=== PATIENT | female | born 1940 | race Caucasian/White ===

== ENCOUNTER → 2016-10-07 12:43 | Outpatient (CLI) | payer MEDICARE, OTHER ==
[2015-02-22 11:50] VITALS: BMI 31.6
[~2016-10-07 12:43] MED LIST: BABY ASPIRIN81 MG PO; BENICAR HCT 40-1 TAB PO; BENICAR40 MG PO; BIOTIN5 MG PO; CALCIUM 600 +1 EAC3 PO; CARAFATE1 G/10 ML PO; CRESTOR20 MG PO; CRESTOR40 MG PO; IMODIUM2 MG PO; KLONOPIN1 MG PO; LOMOTIL TABLET1 TAB PO; PEPCID20 MG PO; PLAVIX75 MG PO; PROBIOTIC1 EAC1 PO; PROTONIX40 MG PO; TYLENOL 325 MG325 MG PO; ULTRAM50 MG PO; VITAMIN B-1000 MCG/M IM; VITAMIN B-1000 MCG/M SQ; XANAX0.25 MG PO; ZYLOPRIM100 MG PO
== END | disposition home or self-care (01) ==
LOC: D.US 12:43
DX: I65.23 Occlusion and stenosis of bilateral carotid arteries (principal)

== ENCOUNTER → 2017-01-31 07:53 | Outpatient (CLI) | payer MEDICARE, OTHER ==
--- NOTE | ~2017-01-31 | HEMODYNAMI ---
PATIENT:MELISSA CARROLL MEDICAL RECORD: [id number] : 40 LOCATION:[facility] ADMISSION DATE: 01/31/17 Generatedon:01/31/201711:45 Patient name: MELISSA CARROLL Patient #: [id number] SSN: DO B: 1940 Date of study: 01/31/2017 Page: Of Hemodynamic Procedure Report Patient Data Patient Demographics Procedure consent was obtained First Name: MELISSA Gender: Female Last Name: GLEN : 1940 Patient #: [id number] Age: 76 year(s) Race: Unknown Additional ID: [id number] Contact details [address]: [address] [place] [address] State: [place] City: [place] Zip code: [address] Past Medical History Allergies Allergen Reaction Date Comments Reported Other allergy 01/31/2017 Allopurinol, Fluarix Admission Admission Data Admission Date: 01/31/2017 Admission Time: 7:53 Admit Source: Other Height (in.): 67 BSA: 1.89 (m2) Height (cm.): 170.18 BMI: 26.78 (kg/m2) Weight (lbs.): 171 Weight (kg.): 77.56 Procedure Procedure Types Cath Procedure Diagnostic Procedure [facility] LH w/Coronaries PCI Procedure Coronary Stent Initial Miscellaneous Procedures Moderate Sedation up to 15 minutes Moderate Sedation up to 30 minutes Peripheral Cath Diagnostic Procedure Cath Peripheral Vmkil-Weumslh-Xpk-Off Peripheral vascular Intervention Stent Stent Iliac w/plasty Initial Procedure Description Procedure Date Procedure Date: 01/31/2017 Procedure Start Time: 11:10 Procedure End Time: 11:40 Procedure Staff Name Function Raymond Dior MD Performing Physician Selene Cifuentes RT Scrub Maldonado Del Valle RN Nurse Teri Reyes RN Nurse Giuliana Gibbs RT Monitor Procedure Data Cath Procedure Fluoroscopy Diagnostic fluoroscopy Total fluoroscopy Time: 8.5 time: 8.5 min min Diagnostic fluoroscopy Total fluoroscopy dose: dose: 1042 mGy 1042 mGy Contrast Material Contrast Material Type Amount (ml) Isovue 300 252 Entry Location Entry Primary Successful Side Size (Fr) Upsize 1 Upsize Entry Closu re Successful Closure Location (Fr) 2 (Fr) Remarks Feng e Remarks Femoral Right 5 Fr 6 Fr 6 Fr Exose al artery Mid-Length Short Femoral Left 6 Fr 6 Fr Short Exose al artery Mid-Length Estimated blood loss: 10 ml Diagnostic catheters Device Type Used For End Catheter Placement Cordis 5Fr Pigtail Procedure Catheter (MP) Cordis 5Fr 3DRC Catheter Abdominal (MP) aortogram Cordis 5Fr Pigtail Procedure Catheter (MP) Cordis 5Fr JL 4.0 Procedure Catheter (MP) Cordis 5Fr 3DRC Catheter Procedure (MP) Procedure Complications No complications Procedure Medications Medication Administration Route Dosage 0.9% NaCl I.V. 100 ml/hr Lidocaine 2% added to field 20 Oxygen NC 2 l/min Heparin Flush Bag added to field 2 bags (1000units/500ml NS) Radial Cocktail added to field 1 syringe (Verapomil 2mg/Nitro 400mcg/Heparin 1500units) Fentanyl I.V. 50 mcg Versed I.V. 1 mg Versed I.V. 1 mg Fentanyl I.V. 50 mcg Versed I.V. 1 mg Fentanyl I.V. 50 mcg Versed I.V. 1 mg Fentanyl I.V. 50 mcg Heparin Bolus I.V. 5000 units Versed I.V. 1 mg Versed I.V. 1 mg Fentanyl I.V. 50 mcg Heparin Bolus I.V. 3000 units Fentanyl I.V. 50 mcg Hemodynamics Rest BSA: 1.89 (m2) O2 Consumption: Estimated: 173.18 (ml/min) O2 Consumption indexed : Estimated:91.63 (ml/min/m) Heart Rate: 72 (bpm) Pressure Samples Time Site Value (mmHg) Purpose Heart Use Rate(bpm) 11:03 AO 204/39(92) Snapshot 72 11:03 LV 208/19,26 Snapshot 76 Snapshots Pre Cath Intra NCS Post Cath Vital Signs Time Heart Resp SPO2 etCO2 NIBP (mmHg) Rhythm Pain Sedation Rate (ipm) (%) (mmHg) Status Level (bpm) 10:35:48 76 15 99 36.3 Measuring NSR 0 (11) 10(A) , No pain 10:37:10 75 19 99 37.1 Time NSR 0 (11) 10(A) Exceeded , No pain 10:42:11 65 16 94 0 180/73(131) NSR 0 (11) 10(A) , No pain 10:46:41 67 19 97 22 171/74(131) NSR 0 (11) 10(A) , No pain 10:51:14 70 19 98 0 176/68(118) NSR 0 (11) 10(A) , No pain 10:55:44 69 17 97 22.7 167/65(117) NSR 0 (11) 10(A) , No pain 11:00:19 70 19 98 0 172/63(122) NSR 0 (11) 9(A) , No pain 11:04:53 80 18 98 18.1 178/70(118) NSR 0 (11) 9(A) , No pain 11:09:28 80 17 99 3 183/76(131) NSR 0 (11) 9(A) , No pain 11:14:00 83 15 99 10.6 181/74(121) NSR 0 (11) 10(A) , No pain 11:18:35 79 13 99 13.6 169/65(104) NSR 0 (11) 10(A) , No pain 11:23:07 77 16 97 0 163/65(114) NSR 0 (11) 10(A) , No pain 11:28:55 81 16 99 0 171/68(124) NSR 0 (11) 10(A) , No pain 11:33:30 77 17 98 0 184/74(130) NSR 0 (11) 10(A) , No pain 11:37:54 82 16 98 28 161/75(116) NSR 0 (11) 10(A) , No pain Medications Time Medication Route Dose Verified Delivered Reason No cayden Effectiveness by by 10:44:47 0.9% NaCl I.V. 100 ml/hr Raymond Williamson used for Barby Reyes spray booth operator 10:45:16 Lidocaine 2% added 20ml vial Raymond Andrade for local to Barby Dior MD anesthetic field 10:45:41 Oxygen NC 2 l/min Raymond Williamson used for Barby Reyes spray booth operator 10:46:15 Heparin Flush added 2 bags Raymond Andrade used for Bag to Barby Dior MD procedure (1000units/500ml field NS) 10:46:48 Radial Cocktail added 1 syringe Raymond Andrade for (Verapomil to Barby Dior MD anticoagulation 2mg/Nitro field 400mcg/Heparin 1500units) 10:49:56 Fentanyl I.V. 50 mcg Raymond Williamson for sedation Barby Reyes RN 10:50:09 Versed I.V. 1 mg Raymond Williamson for sedation Barby Reyes RN 10:53:23 Versed I.V. 1 mg Raymond Okeefe for sedation Barby Del Valle RN 10:53:31 Fentanyl I.V. 50 mcg Raymond Okeefe for sedation Barby Del Valle RN 10:58:32 Versed I.V. 1 mg Raymond Williamson for sedation Barby Reyes RN 10:58:39 Fentanyl I.V. 50 mcg Raymond Williamson for sedation Barby Reyes RN 11:02:23 Versed I.V. 1 mg Raymond Okeefe for sedation Barby Del Valle RN 11:02:48 Fentanyl I.V. 50 mcg Raymond Okeefe for sedation Barby Del Valle RN 11:04:17 Heparin Bolus I.V. 5000 Raymond Ordazfany for ve rified units Barby Reyes RN anticoagulation with dr dior 11:14:02 Versed I.V. 1 mg Raymond Williamson for sedation Barby Reyes RN 11:15:48 Versed I.V. 1 mg Raymond Williamson for sedation Barby Reyes RN 11:15:56 Fentanyl I.V. 50 mcg Raymond Okeefe for sedation Barby Del Valle RN 11:24:43 Heparin Bolus I.V. 3000units Raymond Okeefe for ve karelied Barby Del Valle RN anticoagulation with dr dior 11:29:17 Fentanyl I.V. 50 mcg Raymond Williamson for sedation Barby Reyes RN Procedure Log Time Note 10:17:15 Patient Height : 67 inches 10:17:21 Patient Weight : 171 lbs 10:17:21 Admit Source: Other 10:19:24 Diagnostic Cath status Elective 10:19:26 Maldonado Del Valle RN sent for patient. Start room use. 10:19:27 Time tracking: Regular hours 10:19:31 Plan of Care:Hemodynamics will remain stable., Cardiac rhythm will remain stable., Comfort level will be maintained., Respiratory function will remain adequate., Patient/ family verbilizes understanding of procedure., Procedure tolerated without complication., Recovers from procedure without complications.. 10:19:55 Patient received from Pre/Post Procedure Room to CCL 2 Alert and oriented. Tansferred to table in Supine position. 10:20:37 Warm blankets applied, and maurizio hugger turned on for patient comfort. 10:20:38 Correct patient and procedure confirmed by team. 10:20:39 Signed procedure consent form obtained from patient. 10:20:40 ECG and BP/O2 sat monitors applied to patient. 10:20:51 H&P Date Dictated: 01/22/2017 Within 30 days and on chart., H&P Addendum completed by physician on day of procedure. (MUST COMPLETE FOR ALL OUTPATIENTS). 10:20:53 Pre-procedure instructions explained to patient. 10:20:54 Family in waiting room. 10:20:56 Patient NPO since Midnight. 10:21:35 Patient allergic to Other allergyAllopurinol, Fluarix 10:31:10 Is patient on blood thinner?Yes 10:31:13 ACC The patient was administered the following blood thiners within the last 24 hours: ACCPlavix 10:31:17 Patient diabetic? No. 10:31:26 Snore? No 10:31:28 Sleep apnea? No 10:31:36 Dentures? Yes in tight 10:31:39 Patient pain scale 0/10 ?. 10:31:45 IV patent on arrival in left hand with 0.9% NaCl at KVO. 10:31:50 Lab results completed and on chart. 10:31:54 Right Radial & Right Groin area was prepped with chlora-prep and draped in sterile fashion 10:31:56 Alarms reviewed by R. N. 10:31:56 Sharps counted by scrub and verified by R.N. 10:31:59 Physician paged 10:33:59 Vital chart was started 10:44:47 0.9% NaCl 100 ml/hr I.V. was administered by Teri Reyes RN; used for procedure; 10:45:16 Lidocaine 2% 20ml vial added to field was administered by Raymond Dior MD; for local anesthetic; 10:45:41 Oxygen 2 l/min NC was administered by Teri Reyes RN; used for procedure; 10:46:15 Heparin Flush Bag (1000units/500ml NS) 2 bags added to field was administered by Raymond Dior MD; used for procedure; 10:46:48 Radial Cocktail (Verapomil 2mg/Nitro 400mcg/Heparin 1500units) 1 syringe added to field was administered by Raymond Dior MD; for anticoagulation; 10:47:45 Zero performed for pressure channel P1 10:49:02 Physician arrived 10:49:03 --------ALL STOP TIME OUT------ 10:49:04 Final Timeout: patient, procedure, and site verified with staff and physician. All members of the team are in agreement. 10:49:06 Right Radial & Right Groin site verified by team. 10:49:11 Sedation plan: IV Moderate Sedation Versed, Fentanyl 10:49:56 Fentanyl 50 mcg I.V. was administered by Teri Reyes RN; for sedation; 10:49:56 Use device set Radial Dx 10:49:57 Acist Syringe opened to sterile field. 10:49:57 Medline Cath Pack opened to sterile field. 10:49:58 Bag Decanter opened to sterile field. 10:49:58 Terumo 6Fr Slender Glidesheath opened to sterile field. 10:49:59 St Axel 260cm J .035 wire opened to sterile field. 10:49:59 Acist Hand Control opened to sterile field. 10:49:59 Acist Manifold opened to sterile field. 10:50:00 Tegaderm 4 x 4 opened to sterile field. 10:50:00 MBrace Wrist Support opened to sterile field. 10:50:09 Versed 1 mg I.V. was administered by Teri Reyes RN; for sedation; 10:53:12 Procedure started. 10:53:13 Full Disclosure recording started 10:53:23 Versed 1 mg I.V. was administered by Maldonado Del Valle RN; for sedation; 10:53:31 Fentanyl 50 mcg I.V. was administered by Maldonado Del Valle RN; for sedation; 10:53:42 Local anesthetic to right radial artery with Lidocaine 2% by Raymond Dior MD.INITIAL ACCESS ONLY 10:55:41 Use device set Multipack Set 10:55:43 Diagnostic Infinity 5Fr Multipack catheter opened to sterile field. 10:55:51 Terumo 5Fr [place] Sheath opened to sterile field. 10:55:56 Local anesthetic to right femoral artery with Lidocaine 2% by Raymond Dior MD.ADDITIONAL ACCESS 10:56:24 A 5 Fr sheath was inserted into the Right Femoral artery 10:58:32 Versed 1 mg I.V. was administered by Teri Reyes RN; for sedation; 10:58:39 Fentanyl 50 mcg I.V. was administered by Teri Reyes RN; for sedation; 10:58:59 A Cordis 5Fr Pigtail Catheter (MP) was advanced over the wire and used for Procedure. 10:59:47 Catheter removed. 11:00:07 unable to cross abdominal aorta. 11:00:50 A Cordis 5Fr 3DRC Catheter (MP) was advanced over the wire and used for Abdominal aortogram. 11:01:20 Terumo Super Stiff Angled 260cm glide wire opened to sterile field. 11:02:23 Versed 1 mg I.V. was administered by Maldonado Del Valle RN; for sedation; 11:02:23 Catheter removed. 11:02:39 A Cordis 5Fr Pigtail Catheter (MP) was advanced over the wire and used for Procedure. 11:02:48 Fentanyl 50 mcg I.V. was administered by Maldonado Del Valle RN; for sedation; 11:02:49 LV gram done using BRITO 11:03:29 EF : 50 % 11:04:09 Abdominal angiogram w/ runoff was performed. 11:04:17 Heparin Bolus 5000 units I.V. was administered by Teri Reyes RN; for anticoagulation; verified with dr dior 11:07:32 Prepped left groin for intervenion 11:07:37 Cordis 6Fr Brite Tip 35cm Sheath opened to sterile field. 11:07:38 Cordis 6Fr Brite Tip 35cm Sheath opened to sterile field. 11:08:21 Sheath upsized to a 6 Fr Mid-Length. 11:10:06 St Axel 260cm J .035 wire opened to sterile field. 11:10:43 Local anesthetic to left femerol artery with Lidocaine 2% by Raymond Dior MD.INITIAL ACCESS ONLY 11:11:10 A 6 Fr Mid-Length sheath was inserted into the Left Femoral artery 11:11:50 J wire inserted. 11:12:17 Jwires inserted bilaterally wire advanced. 11:14:02 Versed 1 mg I.V. was administered by Teri Reyes RN; for sedation; 11:15:10 Procedure type changed to Cath procedure, Diagnostic procedure, LHC, LHC w/Coronaries, PCI procedure, Coronary Stent Initial, Miscellaneous Procedures, Moderate Sedation up to 15 minutes, Moderate Sedation up to 30 minutes, Peripheral Cath Diagnostic Procedure, Cath Peripheral, Tvsxi-Dpvagxc-Ceo-Off, Peripheral vascular Intervention, Stent, Stent Iliac w/plasty Initial 11:15:48 Versed 1 mg I.V. was administered by Teri Reyes RN; for sedation; 11:15:56 Fentanyl 50 mcg I.V. was administered by Maldonado Del Valle RN; for sedation; 11:17:06 Inflation Number: 1 A Cordis Terrie 7 x 29 x 135 stent was prepped and advanced across the Ostial Common Iliac, Left. The stent was deployed at 9 ANNAMARIA for 0:10 (min:sec). 11:17:48 Inflation Number: 1 A Cordis Terrie 7 x 29 x 135 stent was prepped and advanced across the Ostial Common Iliac, Right. The stent was deployed at 10 ANNAMARIA for 0:00 (min:sec). 11:18:27 Merit BasixCompak Inflation Kit opened to sterile field. 11:18:28 [place] Takes Choice PT Extra Support J 300cm .014 gu opened to sterile field. 11:18:40 Stent removed. 11:19:12 Medtronic Launcher 6Fr HS I SH guide catheter opened to sterile field. 11:19:25 A Cordis 5Fr JL 4.0 Catheter (MP) was advanced over the wire and used for Procedure. 11:19:41 Catheter removed. 11:19:52 A Cordis 5Fr 3DRC Catheter (MP) was advanced over the wire and used for Procedure. 11:19:56 Catheter removed. 11:20:02 Proceeding to intervention. 11:20:29 6 Fr HS1 SH guide catheter was inserted over the wire 11:20:38 pt extra support wire advanced. 11:20:40 Wire advanced across lesion. 11:20:55 The Euphora 2.5 x 20 Balloon was advanced and then removed because of failure to cross lesion 11:21:55 The Euphora 1.5 x 20 Balloon was advanced and then removed because of failure to cross lesion 11::55 Balloon removed over the wire. 11::39 unable to cross RCA with a 1.5 balloon olga back at later date. 11::43 Heparin Bolus 3000units I.V. was administered by Maldonado Del Valle RN; for anticoagulation; verified with dr dior 11::57 Wire removed. 11::57 Guide catheter removed. 11:25:04 Cordis 6FR XBLAD 3.5 guide catheter opened to sterile field. 11:27:22 6 Fr XBLAD3.5 guide catheter was inserted over the wire 11::33 choice pt ex support wire advanced. 11::55 [place] Takes Choice PT Extra Support J 300cm .014 gu opened to sterile field. 11::56 Terumo 6Fr [place] Sheath opened to sterile field. 11::57 Terumo 6Fr [place] Sheath opened to sterile field. 11:28:23 The [place] OTW 3.0 x 22 stent was advanced then removed because of failure to cross lesion 11::58 Inflation number: 1 A Euphora 2.5 x 20 Balloon was prepped and advanced across the Mid LAD, then inflated to 19 ANNAMARIA for 0:10 (min:sec). 11:29:06 Balloon removed over the wire. 11:29:17 Fentanyl 50 mcg I.V. was administered by Teri Reyes RN; for sedation; :39 Inflation Number: 2 A [place] OTW 3.0 x 22 stent was prepped and advanced across the Mid LAD. The stent was deployed at 17 ANNAMARIA for 0:10 (min:sec). 11::42 Wire removed. ::43 Guide catheter removed. 11:31:05 St Axel Femstop Arch Gold opened to sterile field. 11:32:38 Sheath upsized to a 6 Fr Short. 11:32:38 Sheath removed intact; hemostasis achieved with Exoseal to the Left Femoral artery. 11:32:55 Sheath upsized to a 6 Fr Short. 11:32:55 Sheath removed intact; hemostasis achieved with Exoseal to the Right Femoral artery. 11:33:45 Procedure ended.(Physican Out) 11:33:57 Fluoroscopy time 08.50 minutes. 11:34:02 Flurop Dose total: 1042 11:34:02 Fluoroscopy dose: 1042 mGy 11:34:06 Contrast amount:Isovue 300 252ml. 11:34:08 Sharps counted by scrub and verified by R.N. 11:34:32 Post-op/insertion site Right Femoral artery dressed using a 4 x 4 and Tegaderm. 11:34:40 Post-op/insertion site Left Femoral artery dressed using a 4 x 4 and Tegaderm. 11:34:48 Post left femerol artery:hematoma 11:34:57 Femstop placed over the left femerol artery at 190 mmHg. Hemostasis achieved. 11:35:01 Post Procedure Pulses reassessed and unchanged 11:35:06 Post-procedure physical assessment completed. ASA score P 2 - A patient with mild systemic disease as per Raymond Dior MD. 11:35:10 Post procedure rhythm: unchanged. 11:35:12 Estimated blood loss: 10 ml 11:35:14 Post procedure instruction explained to patient.Patient verbalizes understanding. 11:39:08 Procedure and supply charges have been captured, reviewed, submitted and are correct. 11:40:26 Procedure Complication : No complications 11:40:29 Vital chart was stopped 11:40:31 See physician's report for complete and final results. 11:40:35 Report given to Pre/Post Procedure Room. 11:40:38 Patient transfered to Pre/Post Procedure Room with Stretcher. 11:40:40 Procedure ended. 11:40:40 Full Disclosure recording stopped 11:40:46 End room use (Document Last) 11:40:58 ACC-PCI Only Patient was given prescriptions, or instructed by Raymond Dior MD to start/continue the following medications upon discharge: Plavix Intervention Summary Intervention Notes Time ActionType Lesion and Equipment Action# Pressure Duration Attributes Used 11:17:06 Place stent Ostial Cordis 1 9 00:10 Common Terrie 7 Iliac, Left x 29 x 135 stent 11:17:48 Place stent Ostial Cordis 1 10 00:00 Common Terrie 7 Iliac, x 29 x Right 135 stent 11:20:55 Discard Euphora Balloon 2.5 x 20 Balloon 11:21:55 Discard Euphora Balloon 1.5 x 20 Balloon 11:28:23 Discard [place] OTW Stent 3.0 x 22 stent 11:28:58 Inflate Mid LAD Euphora 1 19 00:10 balloon 2.5 x 20 Balloon 11:30:39 Place stent Mid LAD [place] OTW 2 17 00:10 3.0 x 22 stent Device Usage Item Name Manufacture Quantity Catalog Number Hospital Part Current Mini mal Lot# / Charge Number Stock Stock Serial# Code Acist Acist 1 09808 148024 197679 062385 20 Syringe Medical Systems Inc Medline Cardinal 1 [id number] 606682 59194 281982 5 Cath Pack Health Bag Microtek 1 2002S 199420 42610 383155 5 DecFrank & Oak Medical Inc. Terumo 6Fr Terumo 1 [id number] 879265 078159 459903 [address] Ax[address] St Axel 2 222602 405127 592065 736113 30 260cm J .035 wire Acist Hand Acist 1 05009 932229 297071 030200 5 Control Medical Systems Inc Acist Acist 1 22672 247165 209088 598219 5 Chat Sports Medical Systems Inc Tegaderm 4 3M 1 1626W 542035 409861 457403 5 x 4 MBrace Advanced 1 140-0250-00 700729 55911 555117 5 Wrist Vascular Support Dynamics Diagnostic Cardinal 1 [id number] 332799 67026 650629 30 Infinity Health 5Fr Multipack catheter Terumo 5Fr Terumo 1 [id number] 079440 036513 393080 40 [place] Sheath Cordis 5Fr Cardinal 1 498078 5 Pigtail Health Catheter (MP) Cordis 5Fr Cardinal 1 441499 5 3DRC Health Catheter (MP) Terumo Terumo 1 [id number] 469043 805080 067859 5 Super Stiff Angled 260cm glide wire Cordis 6Fr Cardinal 2 [id number] 442332 382873 392149 1 Brite Tip Health 35cm Sheath Cordis Cardinal 2 [id number] 178673 407234 5 [id number] Terrie 7 x Health 29 x 135 stent Merit Merit 1 [id number] 346637 691255 202437 15 GoComm Medical Inflation Kit [place] Sci [place] 2 [id number] 795569 059009 295271 5 Choice PT Scientific Extra Support J 300cm .014 gu Medtronic Medtronic 1 [id number] 338649 39705 896198 1 Launcher 6Fr HS I SH guide catheter Cordis 5Fr Cardinal 1 292668 5 JL 4.0 Health Catheter (MP) Cordis 6FR Cardinal 1 [id number] 994018 581306 720035 10 XBLAD 3.5 Health guide catheter Euphora 2.5 Medtronic 1 [id number] 628292 970205 061241 5 [id number] x 20 Balloon Euphora 1.5 Medtronic 1 [id number] 247594 773532 058473 5 [id number] x 20 Balloon Terumo 6Fr Terumo 2 [id number] 097080 745786 147278 40 [place] Sheath [place] OTW Medtronic 1 [id number] 259563 0491843 785260 5 [id number] 3.[address] Axel 1 [id number] 724742 813033 120957 5 Femstop Arch Gold Signature Audit Starr Stage Time Signature Unsigned Intra-Procedure 01/31/2017 Giuliana Gibbs 11:45:23 AM RT(R) Signatures Monitor : Giuliana Gibbs Signature : RT Date : Time : [id number] [place] [address]
[~2017-01-31 07:53] MED LIST changes: +CYCLOBENZAPRINE10 MG PO; +LAMISIL250 MG PO; +RESTASIS EYE DR30 EA EACH EYE
[2017-01-31 08:18] VITALS: BP 199/69; BMI 28.8
[2017-01-31 08:37] LABS: BASOPHILS 0.3 % (0-2); EOSINOPHILS 1.3 % (0-7); HEMATOCRIT 34.7 % (36.0-48.0); HEMOGLOBIN 11.1 g/dL (12-16); IMMATURE GRANULOCYTES 0.7 % (0-5); LYMPHOCYTES 32.5 % (15-50); MCH 29.2 pg (26.0-34.0); MCV 91.3 fL (80.0-100.0); MONOCYTES 7.2 % (2-11); PLATELET COUNT 232 10x3/uL (130-400); RDW 13.8 % (11.5-14.5); WBC 7.5 10x3/uL (4.8-10.8)
[2017-01-31 08:40] LABS: ANION GAP 15.5 mmol/L (8-16); CALCIUM 9.1 mg/dL (8.5-10.1); CARBON DIOXIDE 26.7 mmol/L (21.0-32.0); CREATININE - SERUM 1.4 mg/dL (0.6-1.3); POTASSIUM - SERUM 4.2 mmol/L (3.5-5.1)
--- NOTE | 2017-01-31 11:45 | NUR ---
1145 RECIEVED TO ROOM VIA STRETCHER FROM SAILBOAT CAPTAIN WITH BANDAID TO R/WRIST CDI NO BLEEDING NOTED. 6 FR EXOSEAL R/GROIN CDI NO BLEEDING NO HEMATOMA NOTED. FEMSTOP TO L/GROIN CDI NO BLEEDING NOTED. REPORTS OF ONE STENT TO THE L/ILIAC,ONE STENT TO THE R/ILIAC,AND ONE STENT TO THE LAD. VSS WITH CHEST PAIN DENIED
--- NOTE | 2017-01-31 12:13 | NUR ---
PATIENT COMPLAINS OF NAUSEA WITH ZOFRAN GIVEN IV. VSS DR MUNOZ AT BEDSIDE
--- NOTE | 2017-01-31 12:50 | NUR ---
RESTING QUIETLY WITH NO COMPLAINTS. FAMILY AT BEDSIDE VSS
--- NOTE | 2017-01-31 13:47 | NUR ---
FEMSTOP REMOVED WITH DRESSING APPLIED NO BLEEDING NO HEMATOMA NOTED. VSS
--- NOTE | 2017-01-31 14:38 | NUR ---
6 FR EXOSEAL R/GROIN CDI NO BLEEDING NO HEMATOMA NOTED. DRESSING TO L/GROIN CDI WITH FEMSTOP REMOVED NO BLEEDING NO HEMATOMA NOTED. PULSES PRESENT AND PALPABLE. PATIENT DENIED CHEST PAIN WITH VSS
--- NOTE | 2017-01-31 15:25 | NUR ---
6 FR EXOSEAL R/GROIN CDI NO BLEEDING NO HEMATOMA NOTED. DRESSING L/GROIN CDI NO BLEEDING NO HEMATOMA NOTED. PATIENT DENIED PAIN OR NEEDS AT THIS TIME VSS
--- NOTE | 2017-01-31 16:14 | NUR ---
REPOSITIONED TO SITTING WITH HOB UP 30 DEGREES. BILATERAL GROIN DRESSINGS CDI NO BLEEDING NO HEMATOMA NOTED. VSS WITH CHEST PAIN DENIED
--- NOTE | 2017-01-31 16:23 | NUR ---
PIV REMOVED WITH DRESSING APPLIED. BILATERAL GROIN DRESSING REMAINS CDI NO BLEEDING NO HEMATOMA NOTED. PATIENT UP TO GET DRESSED FOR DISCHARGE HOME
--- NOTE | 2017-01-31 16:31 | NUR ---
VERBAL AND WRITTEN DISCHARGE GONE OVER WITH PATIENT AND . CHEST PAIN IS DENIED NO DISTRESS NOTED. BILATERAL GROIN CDI LEFT VIA WC TO PARKING FOR TRANSPORT HOME
--- NOTE | 2017-02-07 14:14 | OP ---
PATIENT NAME: MELISSA CARROLL MEDICAL RECORD: [id number] :40 LOCATION:D.CAT ADMISSION DATE: SURGEON: ADRIANA MUNOZ MD DATE OF OPERATION: 01/31/2017 PROCEDURE: 1. PTCA stent to LAD. 2. Left heart catheterization. 3. Selective coronary angiography. 4. Left ventriculogram. INDICATION: Angina and coronary artery disease. PROCEDURE IN DETAIL: After informed consent was obtained and after detailed explanation of risks, benefits as well as alternative therapies, the patient elected to proceed with angiogram and angioplasty. The right femoral area had a preexisting sheath from peripheral intervention. All catheters exchanged through this sheath. FINDINGS: Left ventriculogram was performed in the standard 30-degree BRITO view reveals preserved cardiac wall motion, ejection fraction 55%. SELECTIVE CORONARY ANGIOGRAPHY: 1. Left main showed no significant angiographic disease. 2. Left anterior descending had 80% to 90% stenosis in the mid vessel. 3. Left circumflex shows moderate irregularities, but no discrete flow-limiting stenosis. 4. Right coronary has a 90% followed by a 99% stenosis. SANITATION TRUCK DRIVER STENT OF THE RIGHT CORONARY ARTERY: We cannot traverse any balloon through the 99% stenosis. We turned our attention to the LAD and plan for a Diamondback atherectomy of the RCA in the near future. The LAD was addressed with a 3.0 x 22 mm [place] stent. Result was 0% residual stenosis. OVERALL IMPRESSION: Successful percutaneous transluminal coronary angioplasty stent of the left anterior descending going from 80% to 90% initial stenosis to 0% residual. PLAN: PTCA stent with Diamondback atherectomy of the RCA in the near future. TRANSINT:[id number] Voice Confirmation ID: [id number] DOCUMENT ID: [id number] ADRIANA MUNOZ MD at 1414 CC: [id number] DICTATION DATE: 01/31/17 1207 AUTO REPAIR TECHNICIAN: 01/31/17 1224 DEP CLI 01/31/[address] [id number]
--- NOTE | 2017-02-07 14:14 | OP ---
PATIENT NAME: MELISSA CARROLL MEDICAL RECORD: [id number] :40 LOCATION:D.CAT ADMISSION DATE: SURGEON: ADRIANA MUNOZ MD DATE OF OPERATION: 01/31/2017 PROCEDURES: 1. FOAM DISPENSER stent to right iliac. 2. FOAM DISPENSER stent to left iliac. 3. Aortofemoral runoff. 4. Abdominal aortography. INDICATION: Peripheral vascular disease, claudication, and inability to gain access for coronary angiography. DESCRIPTION OF PROCEDURE: After informed consent was obtained and after a detailed explanation of the risks, benefits as well as alternative therapies, the patient elected to proceed with angiogram and angioplasty. Both femoral areas were prepped and draped in normal sterile fashion. Both femoral artery was cannulated via modified Seldinger technique with placement of 6-Slovenian sheath. All catheters exchanged through this sheath. FINDINGS: Abdominal aortography was performed. The catheter was pulled down for aortofemoral runoff. Abdominal aortography reveals no significant abdominal aortic disease. No dissection. No renal artery stenosis. RIGHT LEG: A. Iliac: The common iliac has an 80% to 90% stenosis, otherwise only moderate irregularities. B. Femoral system: The common, superficial, and deep femoral have moderate irregularities, but no flow-limiting stenosis. C. Popliteal and infrapopliteal vessels are patent with preserved 3-vessel runoff to the foot. LEFT LEG: A. Iliac: The common iliac has an 80% to 90% stenosis, otherwise only moderate irregularities. B. Femoral system: The common, superficial, and deep femoral have moderate irregularities, but no flow-limiting stenosis. C. Popliteal and infrapopliteal vessels are patent with preserved 3-vessel runoff to the foot. FOAM DISPENSER STENT OF BOTH ILIACS: The balloon and stent used on both iliacs was 7 x 29 Cordis Terrie stents taken to 9 atmospheres. Result was 0% residual stenosis. OVERALL IMPRESSION: Successful percutaneous transluminal angioplasty stent of both iliacs going from 80% to 90% initial stenosis to 0% residual stenosis with brisk distal flow. TRANSINT:[id number] Voice Confirmation ID: [id number] DOCUMENT ID: [id number] OPERATIVE REPORT [id number] MELISSA CARROLL JEFFREY MD at 0492 CC: [id number] DICTATION DATE: 01/31/17 1204 CURRICULUM DIRECTOR: 01/31/17 1224 DEP CLI 01/31/17 [facility] [address] [id number]
== END | disposition home or self-care (01) ==
LOC: D.CATH 07:53
PROVIDERS: Internal Medicine Interventional Cardiology
DX: I25.119 Atherosclerotic heart disease of native coronary artery with unspecified angina pectoris (principal); I70.213 Atherosclerosis of native arteries of extremities with intermittent claudication, bilateral legs; Z01.812 Encounter for preprocedural laboratory examination
CPT/HCPCS: 93458; 37221; C9600

== ENCOUNTER 2017-02-05 07:50 | Outpatient (CLI) | payer MEDICARE, OTHER ==
[~2017-02-05] VITALS: Ht 165.1 cm; Wt 78.6 kg
--- NOTE | ~2017-02-05 | HEMODYNAMI ---
PATIENT:MELISSA CARROLL MEDICAL RECORD: [id number] : 40 LOCATION:DIDA ADMISSION DATE: 02/05/17 Generatedon:02/05/201710:45 Patient name: MELISSA CARROLL Patient #: [id number] SSN: DO B: 1940 Date of study: 02/05/2017 Page: Of Hemodynamic Procedure Report Patient Data Patient Demographics Procedure consent was obtained First Name: MELISSA Gender: Female Last Name: GLEN : 1940 Patient #: [id number] Age: 76 year(s) Race: Unknown Additional ID: [id number] Contact details [address]: [address] [place] [address] State: [place] City: [place] Zip code: [address] Past Medical History Allergies Allergen Reaction Date Comments Reported Other allergy 01/31/2017 Allopurinol, Fluarix Admission Admission Data Admission Date: 02/05/2017 Admission Time: 7:50 Admit Source: Other Lab Results Lab Result Date: 02/05/2017 Lab Result Time: 8:55 Biochemistry Name Units Result Min Max BUN mg/dl 26 --(----)-* 7 18 Creatinine mg/dl 1.4 --(----)*- 0.6 1.3 CBC Name Units Result Min Max Hematocrit % 26.8 *-(----)-- 42 54 Hemoglobin g/dl 8.4 *-(----)-- 13.5 17.5 Procedure Procedure Types Cath Procedure PCI Procedure Coronary Stent Coronary Stent Initial Miscellaneous Procedures Moderate Sedation up to 15 minutes Moderate Sedation up to 45 minutes Procedure Description Procedure Date Procedure Date: 02/05/2017 Procedure Start Time: 9:58 Procedure End Time: 10:44 Procedure Staff Name Function Raymond Dior MD Performing Physician Rajinder Ny RT Monitor Giuliana Gibbs RT Scrub Johnathan Alcala RN Nurse Procedure Data Cath Procedure Fluoroscopy Diagnostic fluoroscopy Total fluoroscopy Time: time: 15.2 min 15.2 min Diagnostic fluoroscopy Total fluoroscopy dose: dose: 1317 mGy 1317 mGy Contrast Material Contrast Material Type Amount (ml) Isovue 300 159 Entry Location Entry Primary Successful Side Size Upsize Upsize Entry Closure Succes sful Closure Location (Fr) 1 (Fr) 2 (Fr) Remarks Device Remarks Femoral Right 7 Fr Exoseal artery Short Femoral Right 6 Fr Exoseal vein Short Estimated blood loss: 10 ml Procedure Complications No complications Procedure Medications Medication Administration Route Dosage Oxygen NC 2 l/min Heparin Flush Bag added to field 2 bags (1000units/500ml NS) 0.9% NaCl I.V. 100 ml/hr Fentanyl I.V. 50 mcg Versed I.V. 1 mg Fentanyl I.V. 50 mcg Versed I.V. 1 mg Fentanyl I.V. 50 mcg Versed I.V. 1 mg Fentanyl I.V. 50 mcg Versed I.V. 1 mg Heparin Bolus I.V. 4000 units Fentanyl I.V. 50 mcg Fentanyl I.V. 50 mcg Versed I.V. 2 mg Hemodynamics Rest HGB: 8.4 (g/dl) Heart Rate: 77 (bpm) Snapshots Pre Cath Intra NCS Post Cath Vital Signs Time Heart Resp SPO2 etCO2 NIBP (mmHg) Rhythm Pain Sedation Rate (ipm) (%) (mmHg) Status Level (bpm) 9:42:46 74 19 96 0 161/59(117) NSR 0 (11) 10(A) , No pain 9:47:14 77 19 98 0 166/66(110) NSR 0 (11) 10(A) , No pain 9:51:44 79 18 96 0 167/68(83) NSR 0 (11) 10(A) , No pain 9:56:17 76 17 100 33.7 163/62(115) NSR 0 (11) 10(A) , No pain 10:00:45 74 17 100 30.8 146/55(88) NSR 0 (11) 10(A) , No pain 10:05:07 71 17 98 16.5 143/59(116) NSR 0 (11) 10(A) , No pain 10:09:34 80 17 89 0 141/53(111) NSR 0 (11) 10(A) , No pain 10:13:54 73 16 95 10.5 135/55(101) NSR 0 (11) 9(A) , No pain 10:18:16 74 17 100 0 133/50(103) NSR 0 (11) 9(A) , No pain 10:22:38 80 18 100 0 130/49(89) NSR 0 (11) 9(A) , No pain 10:26:58 93 19 100 20.2 150/65(104) NSR 0 (11) 9(A) , No pain 10:31:28 89 16 100 0 162/61(102) NSR 0 (11) 9(A) , No pain 10:36:03 95 18 100 24.7 158/60(98) NSR 0 (11) 9(A) , No pain 10:40:31 88 19 100 0 158/59(101) NSR 0 (11) 9(A) , No pain Medications Time Medication Route Dose Verified Delivered Reason Notes Effectiveness by by 9:55:59 Oxygen NC 2 Raymond Johnathan Per physician l/min Barby Alcala RN 9:56:07 Heparin Flush added 2 Raymond Johnathan used for Bag to bags Barby Alcala lacquer dipping machine operator (1000units/500ml field NS) 9:56:23 0.9% NaCl I.V. 100 Raymond Johnathan Per physician ml/hr Barby Alcala RN 9:58:40 Fentanyl I.V. 50 Raymond Johnathan for sedation mcg Barby Alcala RN 9:58:46 Versed I.V. 1 mg Raymond Johnathan for sedation Barby Alcala RN 10:02:06 Fentanyl I.V. 50 Raymond Johnathan for sedation mcg Barby Alcala RN 10:02:10 Versed I.V. 1 mg Raymond Johnathan for sedation Barby Alcala RN 10:06:37 Fentanyl I.V. 50 Raymond Johnathan for sedation mcg Barby Alcala RN 10:06:40 Versed I.V. 1 mg Raymond Johnathan for sedation Barby Alcala RN 10:10:49 Fentanyl I.V. 50 Raymond Johnathan for sedation mcg Barby Alcala RN 10:10:53 Versed I.V. 1 mg Raymond Johnathan for sedation Barby Alcala RN 10:12:22 Heparin Bolus I.V. 4000 Raymond Johnathan for units Barby Alcala RN anticoagulation 10:21:05 Fentanyl I.V. 50 Raymond Mann for sedation mcg Barby Alcala RN 10:26:16 Fentanyl I.V. 50 Raymond Mnan for sedation mcg Barby Alcala RN 10:29:53 Versed I.V. 2 mg Raymond Mann for sedation Barby Alcala gluer and wedger Log Time Note 9:20:45 Rajinder Ny RT(R) sent for patient. Start room use. 9:28:48 Admit Source: Other 9:29:42 Diagnostic Cath status Elective 9:29:46 Time tracking: Regular hours 9:29:50 Plan of Care:Hemodynamics will remain stable., Cardiac rhythm will remain stable., Comfort level will be maintained., Respiratory function will remain adequate., Patient/ family verbilizes understanding of procedure., Procedure tolerated without complication., Recovers from procedure without complications.. 9:36:17 Patient received from Pre/Post Procedure Room to [facility] 2 Alert and oriented. Tansferred to table in Supine position. 9:36:19 Warm blankets applied, and maurizio hugger turned on for patient comfort. 9:36:19 Correct patient and procedure confirmed by team. 9:36:21 Signed procedure consent form obtained from patient. 9:36:22 ECG and BP/O2 sat monitors applied to patient. 9:36:23 Pre-procedure instructions explained to patient. 9:36:24 Pre-op teaching completed and patient verbalized understanding. 9:36:25 Family in waiting room. 9:36:27 Patient NPO since Midnight. 9:41:24 Vital chart was started 9:41:25 Baseline sample Acquired. 9:41:28 Rhythm: sinus rhythm 9:41:29 Full Disclosure recording started 9:52:06 Is the patient allergic to Iodine/contrast media? No. 9:52:07 Is patient on blood thinner?Yes 9:52:10 ACC The patient was administered the following blood thiners within the last 24 hours: ACCPlavix 9:52:12 Patient diabetic? No. 9:52:15 Previous problem with sedation/anesthesia? No ? 9:52:15 Snore? Yes 9:52:16 Sleep apnea? No 9:52:17 Deviated septum? No 9:52:18 Opens mouth fully? Yes 9:52:19 Sticks out tongue? Yes 9:52:20 Airway obstruction? No ? 9:52:24 Dentures? Yes partial in tight 9:52:28 Pre procedure: right dorsailis pedis pulse 1+ Palpable, but thready & weak; easily obliterated 9:52:30 Patient pain scale 0/10 ?. 9:52:38 IV patent on arrival in left hand with 0.9% NaCl at [facility]. 9:53:41 Lab Result : BUN 26 mg/dl 9:53:41 Lab Result : Hemoglobin 8.4 g/dl 9:53:41 Lab Result : Creatinine 1.4 mg/dl 9:53:41 Lab Result : Hematocrit 26.8 % 9:53:43 Lab results completed and on chart. 9:53:45 Right groin area was prepped with chlora-prep and draped in sterile fashion 9:53:45 Alarms reviewed by R. N. 9:53:46 Sharps counted by scrub and verified by R.N. 9:53:50 Use device set Femoral PCI 9:53:52 Tegaderm 4 x 4 opened to sterile field. 9:53:53 Merit BasixCompak Inflation Kit opened to sterile field. 9:54:35 Acist Manifold opened to sterile field. 9:54:36 Acist Syringe opened to sterile field. 9:54:36 Acist Hand Control opened to sterile field. 9:54:37 Bag Decanter opened to sterile field. 9:54:37 Medline Cath Pack opened to sterile field. 9:54:38 Terumo 6Fr [place] Sheath opened to sterile field. 9:54:38 St Axel 260cm J .035 wire opened to sterile field. 9:54:43 Terumo 7Fr [place] Sheath opened to sterile field. 9:55:15 Physician arrived 9:55:15 --------ALL STOP TIME OUT------ 9:55:16 Final Timeout: patient, procedure, and site verified with staff and physician. All members of the team are in agreement. 9:55:18 Right groin site verified by team. 9:55:22 Sedation plan: IV Moderate Sedation Medication:Versed, Fentanyl 9:55:59 Oxygen 2 l/min NC was administered by Johnathan Alcala RN; Per physician; 9:56:04 Medtronic Launcher 7Fr HS I SH guide catheter opened to sterile field. 9:56:07 Heparin Flush Bag (1000units/500ml NS) 2 bags added to field was administered by Johnathan Alcala RN; used for procedure; 9:56:23 0.9% NaCl 100 ml/hr I.V. was administered by Johnathan Alcala RN; Per physician; 9:56:46 Zero performed for pressure channel P1 9:58:00 5Fr J Tip Temporary Pacing Catheter opened to sterile field. 9:58:11 Viperslide LUBRICANT opened to sterile field. 9:58:20 Medtronic Launcher 6Fr HS II SH guide catheter opened to sterile field. 9:58:25 Procedure started. 9:58:27 Local anesthetic to right femoral artery with Lidocaine 2% by Raymond Dior MD.INITIAL ACCESS ONLY 9:58:40 Fentanyl 50 mcg I.V. was administered by Johnathan Alcala RN; for sedation; 9:58:46 Versed 1 mg I.V. was administered by Johnathan Alcala RN; for sedation; 10:02:06 Fentanyl 50 mcg I.V. was administered by Johnathan Alcala RN; for sedation; 10:02:09 Zero performed for pressure channel P1 10:02:10 Versed 1 mg I.V. was administered by Johnathan Alcala RN; for sedation; 10:06:37 Fentanyl 50 mcg I.V. was administered by Johnathan Alcala RN; for sedation; 10:06:40 Versed 1 mg I.V. was administered by Johnathan Alcala RN; for sedation; 10:07:46 A 7 Fr Short sheath was inserted into the Right Femoral artery 10:07:51 A 6 Fr Short sheath was inserted into the Right Femoral vein 10:08:23 Temporary pacer inserted 10:10:49 Fentanyl 50 mcg I.V. was administered by Johnathan Alcala RN; for sedation; 10::51 Temporary pacer turned on with the following settings: Rate 40, MA 5, Mode: Demand. 10:10:53 Versed 1 mg I.V. was administered by Johnathan Alcala RN; for sedation; 10:11:19 7 Fr HS 2SH guide catheter was inserted over the wire 10:12:22 Heparin Bolus 4000 units I.V. was administered by Johnathan Alcala RN; for anticoagulation; 10:12:32 VIPER .014 335 CM guide wire opened to sterile field. 10:12:35 viper wire advanced. 10:14:10 Wire advanced across lesion. 10:16:38 Wire removed. 10:16:49 [place] Sci PT Graphix J 300cm 0.014 guide wire opened to sterile field. 10:17:39 pt graphix wire advanced. 10:17:41 Wire advanced across lesion. 10:19:07 Inflation number: 1 A [place] Sci [place] 1.5 X 15 balloon was prepped and advanced across the Mid RCA, then inflated to 21 ANNAMARIA for 0:10 (min:sec). 10:19:34 Inflation number: 2 The [place] Sci [place] 1.5 X 15 balloon was reinflated across the Mid RCA, to 23 ANNAMARIA for 0:10 (min:sec). 10:20:05 Balloon removed over the wire. 10:21:05 Fentanyl 50 mcg I.V. was administered by Johnathan Alcala RN; for sedation; 10:21:32 Inflation number: 3 A Euphora 2.0 x 20 Balloon was prepped and advanced across the Mid RCA, then inflated to 21 ANNAMARIA for 0:10 (min:sec). 10:21:54 Inflation number: 1 The Euphora 2.0 x 20 Balloon was reinflated across the Prox RCA, to 21 ANNAMARIA for 0:10 (min:sec). 10:22:25 Balloon removed over the wire. 10:24:22 The Van Voorhis OTW 2.25 x 26 stent was advanced then removed because of failure to cross lesion 10:25:31 Inflation number: 4 A Euphora 2.5 x 20 Balloon was prepped and advanced across the Mid RCA, then inflated to 15 ANNAMARIA for 0:10 (min:sec). 10:25:52 Inflation number: 2 The Euphora 2.5 x 20 Balloon was reinflated across the Prox RCA, to 13 ANNAMARIA for 0:10 (min:sec). 10:25:58 Curtis Whisper J 300cm 0.014 guide wire opened to sterile field. 10:26:06 Balloon removed over the wire. 10:26:10 whisper wire advanced. 10:26:16 Fentanyl 50 mcg I.V. was administered by Johnathan Alcala RN; for sedation; 10:26:22 whisper wire advanced as a shayna wire. 10:28:10 Wire removed. 10:28:50 Inflation Number: 5 A Jerome OTW 2.25 x 26 stent was prepped and advanced across the Mid RCA. The stent was deployed at 17 ANNAMARIA for 0:10 (min:sec). 10:29:35 Temporary pacer turn off 10:29:45 Stent catheter was removed intact over wire. 10:29:53 Versed 2 mg I.V. was administered by Johnathan Alcala RN; for sedation; 10:31:54 Inflation Number: 3 A Van Voorhis OTW 2.5 x 38 stent was prepped and advanced across the Prox RCA. The stent was deployed at 13 ANNAMARIA for 0:10 (min:sec). 10:32:56 Inflation number: 4 The stent balloon was then re-inflated across the Prox RCA to 17 ANNAMARIA for 0:10 (min:sec). 10:33:14 Stent catheter was removed intact over wire. 10:33:15 Wire removed. 10:33:16 Guide catheter removed. 10:33:20 Temporary pacer removed 10:33:22 Cordis 6Fr Exoseal opened to sterile field. 10:33:22 Cordis 7Fr Exoseal opened to sterile field. 10:34:13 Sheath removed intact; hemostasis achieved with Exoseal to the Right Femoral vein. 10:34:18 Sheath removed intact; hemostasis achieved with Exoseal to the Right Femoral artery. 10:34:22 Procedure ended.(Physican Out) 10:35:49 Fluoroscopy time 15.20 minutes. 10:35:57 Flurop Dose total: 1317 10:35:57 Fluoroscopy dose: 1317 mGy 10:36:24 Contrast amount:Isovue 300 159ml. 10:36:25 Sharps counted by scrub and verified by R.N. 10:37:56 Insertion/operative site no bleeding no hematoma. 10:37:59 Post-op/insertion site Right Femoral artery dressed using a 4 x 4 and Tegaderm. 10:38:03 Post-op/insertion site Right Femoral vein dressed using a 4 x 4 and Tegaderm. 10:38:07 Post right femoral artery:stable, soft, clean and dry 10:38:13 Post left femoral vein:stable, soft, clean and dry 10:38:15 Post Procedure Pulses reassessed and unchanged 10:38:17 Post-procedure physical assessment completed. ASA score P 2 - A patient with mild systemic disease as per Raymond Dior MD. 10:38:18 Post procedure rhythm: unchanged. 10:38:20 Estimated blood loss: 10 ml 10:38:27 Post procedure instruction explained to patient.Patient verbalizes understanding. 10:38:28 Patient needs reinforcement of post procedure teaching. 10:38:55 Procedure type changed to Cath procedure, PCI procedure, Coronary Stent, Coronary Stent Initial, Miscellaneous Procedures, Moderate Sedation up to 15 minutes, Moderate Sedation up to 45 minutes 10:44:22 Procedure and supply charges have been captured, reviewed, submitted and are correct. 10:44:26 Procedure Complication : No complications 10:44:27 Vital chart was stopped 10:44:28 See physician's report for complete and final results. 10:44:29 Report given to Pre/Post Procedure Room. 10:44:31 Patient transfered to Pre/Post Procedure Room with Stretcher. 10:44:33 Procedure ended. 10:44:33 Full Disclosure recording stopped 10::44 End room use (Document Last) Intervention Summary Intervention Notes Time ActionType Lesion and Equipment Action# Pressure Duration Attributes Used 10:19:07 Inflate Mid RCA [place] 1 21 00:10 balloon Sci [place] 1.5 X 15 balloon 10:19:34 Reinflate Mid RCA [place] 2 23 00:10 balloon Sci [place] 1.5 X 15 balloon 10:21:32 Inflate Mid RCA Euphora 3 21 00:10 balloon 2.0 x 20 Balloon 10:21:54 Reinflate Prox RCA Euphora 1 21 00:10 balloon 2.0 x 20 Balloon 10:24:22 Discard Jerome OTW Stent 2.25 x 26 stent 10:25:31 Inflate Mid RCA Euphora 4 15 00:10 balloon 2.5 x 20 Balloon 10:25:52 Reinflate Prox RCA Euphora 2 13 00:10 balloon 2.5 x 20 Balloon 10:28:50 Place stent Mid RCA Van Voorhis OTW 5 17 00:10 2.25 x 26 stent 10:31:54 Place stent Prox RCA Jerome OTW 3 13 00:10 2.5 x 38 stent 10:32:56 Reinflate Prox RCA Van Voorhis OTW 4 17 00:10 stent 2.5 x 38 balloon stent Device Usage Item Name Manufacture Quantity Catalog Number [facility] nimal Lot# / Charge Number Stock Stock Serial# Code Tegaderm 4 1 [id number] 115887 758705 5 x 4 [facility] 1 AE4236 730324 656023 384269 15 BasixCompak Inflation Kit Acist Acist Medical 1 12530 060508 270179 870304 5 Manifold Systems Inc Acist Acist Medical 1 94887 841493 384306 280600 20 Syringe Systems Inc Acist Hand Acist Medical 1 07234 875847 087640 056671 5 Control Systems Inc Bag Microtek 1 2002S 603195 33319 089291 5 Decanter Medical Inc. Medline Cardinal 1 [id number] 717193 48060 414960 5 Cath Pack Health Terumo 6Fr Terumo 1 RGL921 250613 457662 247411 [address] Ax[address] Axel 1 329090 950262 114883 492362 30 260cm J .035 wire Terumo 7Fr Terumo 1 AJL929 436248 610071 938126 5 [place] Sheath Medtronic Medtronic 1 [id number] 827741 914781 622336 0 Launcher 7Fr HS I SH guide catheter 5Fr J Tip Crump 1 [id number] 986377 06581 907475 2 Temporary Lifesciences Pacing Catheter Viperslide Cardiovascular 1 VPR-SLD2 330810 398029 5 LUBRICANT systems Medtronic Medtronic 1 [id number] 337700 61655 150474 1 Launcher 6Fr HS II SH guide catheter VIPER .014 Cardiovascular 1 VPR-GW-FT14 810234 806389 5 335 CM systems guide wire [place] Sci [place] 1 [id number] 314955 502741 777301 5 PT Graphix Scientific J 300cm 0.014 guide wire [place] Sci [place] 1 [id number] 334822 566862 693108 1 [id number] TapTalents Scientific 1.5 X 15 balloon Euphora 2.0 Medtronic 1 [id number] 687388 998315 481880 5 [id number] x 20 Balloon Jerome OTW Medtronic 1 [id number] 006227 25856 619907 5 [id number] 2.25 x 26 stent Euphora 2.5 Medtronic 1 [id number] 338349 070444 678405 5 [id number] x 20 Balloon Curtis Curtis 1 [id number] 993984 066713 416899 5 isigor J Vascular 300cm 0.014 guide wire Van Voorhis OTW Medtronic 1 [id number] 983475 95767 091451 5 [id number] 2.5 x 38 stent Cordis 6Fr Cardinal 1 EX600 080042 521666 100904 10 Ex[facility] Cordis 7Fr Cardinal 1 EX700 128299 446171 342087 5 [facility] Signature Audit [place] Stage Time Signature Unsigned Intra-Procedure 02/05/2017 Rajinder Ny 10:45:36 AM RT(R) Signatures Monitor : Rajinder Ny RT Signature : Date : Time : [id number] [place] [address]
[2017-02-05 08:40] VITALS: BP 158/49; Ht 165.1 cm; Wt 78.6 kg
[2017-02-05 09:04] LABS: BASOPHILS 0.3 % (0-2); EOSINOPHILS 1.3 % (0-7); HEMATOCRIT 26.8 % (36.0-48.0); HEMOGLOBIN 8.4 g/dL (12-16); IMMATURE GRANULOCYTES 0.4 % (0-5); LYMPHOCYTES 16.9 % (15-50); MCH 28.7 pg (26.0-34.0); MCHC 31.3 g/dL (31.0-37.0); MCV 91.5 fL (80.0-100.0); MONOCYTES 8.2 % (2-11); NEUTROPHILS 72.9 % (40-80); PLATELET COUNT 222 10x3/uL (130-400); RBC 2.93 10x6/uL (4.00-5.40); RDW 14.1 % (11.5-14.5); WBC 6.9 10x3/uL (4.8-10.8)
[2017-02-05 09:17] LABS: ANION GAP 12.9 mmol/L (8-16); CALCIUM 8.8 mg/dL (8.5-10.1); CARBON DIOXIDE 29.9 mmol/L (21.0-32.0); CREATININE - SERUM 1.4 mg/dL (0.6-1.3); POTASSIUM - SERUM 3.8 mmol/L (3.5-5.1)
--- NOTE | 2017-02-05 11:00 | NUR ---
1100 RECEIVED PT FROM V/[employer]OL [employer] SIGNAL OFFICER. PT C/O NAUSEA. ORDER OBTAINED FROM DR MUNOZ FOR ZOFRAN 4 MG IV. DRESING TO RIGHT GROIN IS CDI BUT LARGE HEMATOMA PRESENT. HASEEB BALL WITH V/STOL [employer] SIGNAL OFFICER HERE AND FEMSTOP PLACED WITH PRESSURE TO 159. AREA MARKED, WILL MONITOR CLOSELY. NSR, PT DENIES ANY C/O CHEST DISCOMFORT.
--- NOTE | 2017-02-05 11:15 | NUR ---
1115 NAUSEA CONTINUES, PT STATES 'A LITTLE BETTER' BUT NOT RESOLVED. FEMSTOP IN PLACE, HEMATOMA AREA IS SOFTENING, WITH NO INCREASE. FOOT WARM, CAP REFILL IS BRISK. CALL LIGHT IN REACH, RR EVEN AND UNLABORED, NSR PER MONITOR.
--- NOTE | 2017-02-05 11:35 | NUR ---
1135 PT STATES FEMSTOP UNCOMFORTABLE AND LEG IS NUMB. SOME MOTTELING TO LEG. EASTERN PHILOSOPHY PROFESSOR STAFF HERE TO ADJUST FEMSTOP. AREA MARKED WITH INITIAL HEMATOMA IS SOFT. CAP REFILL IS BRISK, FOOT WARM. PT STATES FEELS BETTER WITH SENSATION INTACT AFTER ADJUSTMENT.
--- NOTE | 2017-02-05 12:05 | NUR ---
1205 UNIT 1 OF PR[facility]'S STARTED VIA PUMP TO IV IN LEFT HAND. PT HAS TYLENOL ORDER BUT REFUSES AT THIS TIME DUE TO NAUSEA. PT INSTRUCTED OF SYMPTOMS OF BLOOD TRANSFUSION REACTION TO REPORT AND VERBALIZES UNDERSTANDING. PRBC'S CHECKED X 2 NURSES PRIOR TO STARTING VIA PUMP AT 75 CC PER HOUR.
--- NOTE | 2017-02-05 12:15 | NUR ---
1215 AIR REMOVED FROM FEMSTOP. NO BLEEDING OR HEMATOMA NOTED. WILL CONTINUE TO MONITOR. PEDAL PULSES PALPABLE. PT STATES NAUSEA IMPROVED. REFUSES ANYTHING BY MOUTH STATES "DONT WANT TO CHANCE IT YET".
--- NOTE | 2017-02-05 12:30 | NUR ---
1230 PT LASHELL BLOOD TRANSFUSION WITH NO SX OF REACTION, RATE INCREASED TO 100 CC PER HOUR. DRESSING TO RIGHT GROIN IS CDI, AREA SOFT WTIH NO HEMATOMA. PEDAL PULSES PALPABLE.
--- NOTE | 2017-02-05 12:45 | NUR ---
1245 PT LASHELL BLOOD WITH NO REACTION, RATE INCREASED TO 150 CC PER HOUR. NO BLEEDING OR HEMATOMA NOTED AT CATH SITE. PEDAL PULSES PALPABLE.
--- NOTE | 2017-02-05 13:15 | NUR ---
1315 PT DENIES ANY C/O. PRBC'S INFUSING AT 150 CC PER HOUR. REFUSE PO FLUIDS AT THIS TIME. RIGHT GROIN IS STABLE WITH NO BLEEDING OR HEMATOMA NOTED. WILL CONTINUE TO MONITOR.
--- NOTE | 2017-02-05 14:25 | NUR ---
1425 PRBC'S UNIT 1 COMPLETE, PT LASHELL WELL WITH NO SIGN OF REACTION. RIGHT GROIN IS STABLE WITH NO BLEEDING OR HEMATOMA NOTED. WILL CONTINUE TO MONITOR. PT STATES FEELS MUCH BETER AND DENIES ANY C/O AT THIS TIME.
--- NOTE | 2017-02-05 14:50 | NUR ---
1450 UNIT #2 OF PRBC'S STARTED AT 75 CC PER HOUR VIA PUMP AFTER BEING CHECKED PER PROTOCOL X 2 NURSES AND NEW BLOOD TUBING PLACED. PT DENIES ANY C/O. SPRITE AND CRACKERS SERVED. CALL LIGHT IN REACH AND AT BEDSIDE.
--- NOTE | 2017-02-05 15:35 | NUR ---
1535 ASSISTED PT UP TO THE BEDSIDE COMMODE, PT VOIDED APPROX 600 CC OF CLEAR YELLOW URINE. GROIN IS STABLE, PEDAL PULSES PALPABLE. PT DENIES ANY C/O. LASHELL SPRITE AND CRACKERS WTIH NO NAUSEA, STATES DOES NOT WANT ANYTHING ELAS AT THIS TIME. AT BEDSIDE AND CALL LIGHT IN REACH.
--- NOTE | 2017-02-05 16:15 | NUR ---
1615 PT DENIES ANY C/O. PRBC'S INFUSING AT 165 CC PER HOUR VIA PUMP. AT BEDSIDE, CALL LIGHT IN REACH.
--- NOTE | 2017-02-05 17:15 | NUR ---
1715 PRBC'S UNIT #2 HAS COMPLETED, PT DENIES ANY SIGNS/SYMPTOMS OF REACTION. LASHELL CRACKERS AND SPRITE. AT BEDSIDE. R GROIN IS SOFT AND NONTENDER. PEDAL PULSES PALPABLE.
--- NOTE | 2017-02-05 18:29 | NUR ---
1815 PT DENIES ANY SIGNS OF TRANSFUSION REACTION. REVIEWED DC INSTRUCTIONS WITH PT AND WHO VERBALIZE UNDERSTANDING. PT HAS LASHELL PO INTAKE AND VOIDED QS. DRESSING TO RIGHT GROIN IS INTACT WITH NO BLEEDING OR HEMATOMA NOTED. PEDAL PULSES PALPABLE. PT ESCORTED TO PRIVATE AUTO VIA WC BY NURSE. PT HAS ALL BELONGINGS AND DC INSTRUCTIONS AND DENIES ANY C/O UPON DC. DRIVING HER HOME.
--- NOTE | 2017-02-07 14:14 | HP ---
PATIENT: MELISSA CLARKE MEDICAL RECORD: [id number] ACCOUNT: [id number] LOCATION:[facility] : 40 ADMISSION DATE: 02/05/17 HISTORY AND PHYSICAL EXAMINATION DIAGNOSES: 1. Angina. 2. Coronary artery disease. 3. Recent percutaneous transluminal coronary angioplasty stent to left anterior descending with concomitant disease RCA. 4. Peripheral vascular disease. 5. Hypertension. 6. Hyperlipidemia. HISTORY OF PRESENT ILLNESS: Ms. Clarke presented with unstable anginal symptomatology, found to have 2-vessel coronary artery disease of the RCA and LAD. The RCA was so tight, no balloon would pass through this stenosis. We did transcatheter revascularization of the LAD. She is now brought back for Diamondback atherectomy and transcatheter revascularization of the RCA. PHYSICAL EXAMINATION: GENERAL APPEARANCE: Well-nourished, well-developed, appears stated age. Level of distress, comfortable. PSYCHIATRIC: Mental status, alert, normal affect. Orientation, oriented to time, place and person. EYES: Lids and conjunctiva, noninjected. No discharge, no pallor. ENT: Lips, teeth, gums, normal dentition. Oropharynx, no cyanosis, no pallor. NECK: Carotid arteries, bilateral normal upstroke, no bruits, no thrills. JUGULAR VEINS: No jugular venous pressure or distention. CERVICAL LYMPH NODES: Nontender, nonenlarged. THYROID: Not enlarged. Nontender. No nodules. LUNGS: Respiratory effort, unlabored. CHEST: Normal curvature. No thoracic deformity. No chest wall tenderness. Percussion, resonant. Auscultation, clear. No wheezes, no rales, no rhonchi. CARDIOVASCULAR: Precordial exam, nondisplaced. No heaves or pericardial thrills. Rate and rhythm, regular. Heart sounds, normal S1, normal S2. No S3, no gallop, no rub. Systolic murmur, not heard. Diastolic murmur, not heard. EXTREMITIES: No cyanosis, no edema. Peripheral pulses, full and equal in all extremities, except as noted. No bruits appreciated. ABDOMEN: Soft, nondistended. Normal aorta. No bruit. Nontender. No masses. Liver, nontender, no hepatomegaly. Spleen, nontender, no splenomegaly. MUSCULOSKELETAL: No joint tenderness. No joint swelling. No erythema. NEUROLOGICAL: Normal gait, normal strength, normal tone. SKIN: Warm and dry. REVIEW OF SYSTEMS: The patient reports easy bruising but reports no swollen glands. The patient reports no fever, no night sweats, no significant weight gain, no significant weight loss. No significant exercise tolerance. The patient reports no dry eyes, no irritation, no vision change. Patient reports no difficulty hearing and no ear pain. Patient reports no frequent nose bleeds or nose and sinus problems. Patient reports on arm pain on exertion. No shortness of breath while lying down. No history of heart murmur. Patient reports no cough, no wheezing or coughing up blood. Patient reports no abdominal pain, no vomiting. Normal appetite. No diarrhea and not vomiting blood. No nausea and no constipation. Patient reports no incontinence. No HISTORY AND PHYSICAL [id number] GLEN,MELISSA difficulty urinating. No hematuria. No increased frequency. Patient reports no muscle aches. No weakness, no arthralgias, no back pain. No swelling of the extremities. Patient reports no abnormal mole, no jaundice, no rashes. Reports no loss of consciousness. No weakness and no numbness. No seizures, dizziness, or headaches. The patient reports no depression, no sleep disturbance, feeling safe in a relationship and no alcohol abuse. Patient reports on fatigue. Reports no runny nose or sinus pressure. No itching, no hives, and no frequent sneezing. OVERALL IMPRESSION: Anginal symptomatology with significant disease of the right coronary artery. We will proceed with percutaneous transluminal coronary angioplasty stent of the RCA with Diamondback atherectomy. TRANSINT:[id number] Voice Confirmation ID: [id number] DOCUMENT ID: [id number] ADRIANA MUNOZ MD at 1414 CC: [id number] DICTATION DATE: 02/05/17902 CANNERY WORKER: 02/05/17917 DEP CLI 02/05/17 [address] [place] [address]
--- NOTE | 2017-02-07 14:14 | OP ---
PATIENT NAME: MELISSA CARROLL MEDICAL RECORD: [id number] :40 LOCATION:[facility] ADMISSION DATE: SURGEON: ADRIANA MUNOZ MD DATE OF OPERATION: 02/05/2017 PROCEDURES: 1. PTCA stent to RCA. 2. Selective coronary angiography. 3. Temporary pacemaker placement. INDICATION: Angina and coronary artery disease. PROCEDURE IN DETAIL: After informed consent was obtained and after detailed explanation of risks, benefits as well as alternative therapies, the patient elected to proceed with angiogram and angioplasty. The right femoral area was prepped and draped in normal sterile fashion. The right femoral artery was cannulated via modified Seldinger technique with placement of a 7-[place] sheath. The right femoral vein was cannulated via modified Seldinger technique with placement of temporary pacemaker, all catheters exchanged through this sheath. FINDINGS: The right coronary had 95% stenosis mid vessel, 90% stenosis proximally. Mid vessel was addressed with a 2.25 x 22 mm Helix, the proximal vessel with 2.5 x 38 mm Helix. Result was 0% residual stenosis. OVERALL IMPRESSION: Successful percutaneous transluminal coronary angioplasty stent of the right coronary artery going from 95% initial stenosis to 0% residual. TRANSINT:[id number] Voice Confirmation ID: [id number] DOCUMENT ID: [id number] ADRIANA MUNOZ MD at 1414 CC: [id number] DICTATION DATE: 02/05/17 1038 PRINCIPAL MILITARY ANALYST: 02/05/17 1052 DEP CLI 02/05/[address] [address]
== END 2017-02-05 18:15 | disposition home or self-care (01) ==
LOC: D.CATH 07:50
PROVIDERS: Internal Medicine Interventional Cardiology
DX: I25.110 Atherosclerotic heart disease of native coronary artery with unstable angina pectoris (principal); I73.9 Peripheral vascular disease, unspecified; I10 Essential (primary) hypertension; E78.5 Hyperlipidemia, unspecified; Z01.812 Encounter for preprocedural laboratory examination
CPT/HCPCS: 33210; C9600

== ENCOUNTER → 2017-03-10 15:32 | Outpatient (CLI) | payer MEDICARE, OTHER ==
[2017-02-05 08:40] VITALS: BMI 28.8
== END | disposition home or self-care (01) ==
LOC: D.MRI 15:32
DX: M54.32 Sciatica, left side (principal)

== ENCOUNTER → 2017-04-14 14:02 | Outpatient (CLI) | payer MEDICARE, OTHER ==
[2017-02-05 08:40] VITALS: BMI 28.8
== END | disposition home or self-care (01) ==
LOC: D.US 14:02
DX: I65.23 Occlusion and stenosis of bilateral carotid arteries (principal)

== ENCOUNTER 2017-07-09 12:33 | Inpatient (IN) | payer MEDICARE, OTHER ==
[~2017-07-09] VITALS: Ht 165.1 cm; Wt 82.1 kg
[2017-07-09] VITALS (12 sets, daily range): BP systolic 103–142; BP diastolic 32–57; BMI 28.8
--- NOTE | ~2017-07-09 | HP ---
PATIENT: MELISSA CARROLL MEDICAL RECORD: [id number] ACCOUNT: [id number] LOCATION:[facility] : 40 ADMISSION DATE: 07/09/17 HISTORY AND PHYSICAL EXAMINATION REASON FOR ADMISSION: Fatigue, fever, and diarrhea. HISTORY OF PRESENT ILLNESS: The patient is a 77-year-old female with history of coronary artery disease. She states that she had felt well until 2 days prior to admission. She felt onset of increasing diarrhea and fever to 101. She had been taking Advil to keep her fever down. She denied cough, abdominal pain, confusion, headache, or dysuria. She denied chest pain as well. She had poor appetite and continued taking her home medications, but had not been eating or drinking very well. In the office, she was noted to be hypotensive with blood pressure of 100/30 and heart rate of 90. Her sat was 98%. For this reason, she is being admitted directly to the hospital. PAST HISTORY: She had LAD and RCA PTCA for stenosis in January of 2017; right middle lobe pneumonia in May of 2009; history of erosive gastritis; duodenitis; sigmoid diverticulosis; hyperlipidemia; hypertension; history of right carotid stenosis, on Plavix and aspirin; restless leg syndrome; osteoarthritis of the lumbar spine; community-acquired pneumonia, left lower lobe, May of 2007; history of GAGANDEEP-induced cough; shingles at left T7 distribution with neuralgia in 2004; onychomycosis; history of depression; UTI with hospitalization in 1979; vitamin D deficiency; trigeminal neuralgia. SURGICAL HISTORY: Right carotid stent placement, PTCA times 2. SOCIAL HISTORY: Lifelong smoker. Does not drink alcohol. FAMILY HISTORY: Father of [place] at 61. Mother's history is unknown. ALLERGIES: FLU VACCINE, LIPITOR, ZITHROMAX CAUSING DIARRHEA, ALLOPURINOL. CURRENT MEDS: Carbamazepine ER 100 mg capsule one capsule b.i.d., Plavix 75 mg a day, Xanax 0.25 one-half to one tablet t.i.d. p.r.n. anxiety, Crestor 40 mg with evening meal, Benicar HCT 40/12.5 one q.a.m., vitamin D 10,000 units weekly, and aspirin 81 mg daily. REVIEW OF SYSTEMS: GENERAL: Fever of 101 for 2 days, general malaise, and poor appetite. HEENT: No recent visual change, sinus congestion, or sore throat. RESPIRATORY: No severe cough. CARDIAC: No exertional or rest chest pain, claudication, edema, or arrhythmia. GI: Nausea without vomiting, but intermittent diarrhea. No abdominal pain. : There is mild incontinence. No dysuria. SOUND EFFECTS PERSON: No vaginal bleeding. ENDOCRINE: Denies polyuria, polydipsia, heat or cold intolerance. NEURO: No history of stroke, TIA, vascular headaches, or confusion. INTEGUMENT: No rash or itching. PHYSICAL EXAMINATION: VITAL SIGNS: Temperature 101 degrees Fahrenheit, blood pressure is 100/32 with heart rate of 80 and regular, sat is 98%. BMI is 29.5, height 5 feet 4, weight of 172. HISTORY AND PHYSICAL [id number] MELISSA CARROLL GENERAL: The patient appears lethargic but answers questions. HEENT: Eyes are clear. Mucous membranes are dry. Throat unremarkable. NECK: Supple. No bruits or masses. CHEST: Clear. HEART: Regular rate. ABDOMEN: Soft and nontender. PELVIC: Deferred. EXTREMITIES: No CC&E. INTEGUMENT: No rash or petechia. Fair turgor. NEUROLOGIC: Oriented to person, place, and time. Cranial nerves intact. Gait is normal. One-view chest x-ray is clear. BUN and creatinine are elevated at 41 and 2.2. Cardiac enzymes negative. White count is 15,000 with 81% polys, H&H 9.4 and 29.2. Lactic acid is 1.1. ASSESSMENT: 1. Febrile illness, possible sepsis. 2. Acute renal insufficiency. 3. Hypotension. 4. Chronic anemia. 5. History of CAD, asymptomatic. 6. History of hyperlipidemia. PLAN: The patient will be admitted with fluid challenge. Place in the ICU if diastolic blood pressure does not improve. Broad-spectrum antibiotics. ID is not currently available for consult. TRANSINT:[id number] Voice Confirmation ID: [id number] DOCUMENT ID: [id number] CONCHA SWEENEY MD at 0805 CC: [id number] DICTATION DATE: 07/09/17 171 INTERVENTIONAL RADIOLOGY TECH: 07/09/17 193 ADM IN [id number] [place] [address]
[2017-07-09 14:14] LABS: BASOPHILS 0.1 % (0-2); EOSINOPHILS 0.1 % (0-7); HEMATOCRIT 29.2 % (36.0-48.0); HEMOGLOBIN 9.4 g/dL (12-16); IMMATURE GRANULOCYTES 0.7 % (0-5); LYMPHOCYTES 11.7 % (15-50); MCH 29.3 pg (26.0-34.0); MCHC 32.2 g/dL (31.0-37.0); MEAN PLATELET VOLUME 9.6 fL (7.4-10.4); MONOCYTES 6.7 % (2-11); NEUTROPHILS 80.7 % (40-80); PLATELET COUNT 193 10x3/uL (130-400); RBC 3.21 10x6/uL (4.00-5.40); RDW 13.6 % (11.5-14.5); WBC 15.1 10x3/uL (4.8-10.8)
[2017-07-09 14:36] LABS: CALC OSMOLALITY 279 mosm/kg (275-300); CALCIUM 8.8 mg/dL (8.5-10.1); CARBON DIOXIDE 23.6 mmol/L (21.0-32.0); CHLORIDE - SERUM 99 mmol/L (98-107); CKMB 0.5 U/L (0.0-3.6); CREATINE KINASE 76 UL (21-215); CREATININE - SERUM 2.2 mg/dL (0.6-1.3); GLUCOSE 94 mg/dL (74-106); POTASSIUM - SERUM 4.7 mmol/L (3.5-5.1); SODIUM 135 mmol/L (136-145); TROPONIN-I < 0.017 ng/mL (0.000-0.060); UREA NITROGEN 41 mg/dL (7-18); eGFR NON AFRICAN AMERICAN 23 mL/min (90-120)
[2017-07-09 17:48] LABS: APPEARANCE CLEAR (CLEAR); BILIRUBIN NEGATIVE (NEGATIVE); COLOR YELLOW (YELLOW); GLUCOSE NEGATIVE (NEGATIVE); KETONE NEGATIVE (NEGATIVE); NITRITE NEGATIVE (NEGATIVE); PROTEIN NEGATIVE (NEGATIVE); UROBILINOGEN NORMAL (NORMAL)
[2017-07-09 17:49] LABS: RED CELLS - URINE 0-5 /hpf (0-5); WHITE CELLS - URINE 0-5 /hpf (0-5)
[2017-07-09 17:50] LABS: BACTERIA FEW /hpf (NONE SEEN)
[2017-07-10] VITALS (11 sets, daily range): BP systolic 90–148; BP diastolic 39–67; Ht 165.1 cm; Wt 82.1 kg
[2017-07-10 05:14] LABS: BASOPHILS 0.2 % (0-2); EOSINOPHILS 0.7 % (0-7); HEMATOCRIT 28.1 % (36.0-48.0); IMMATURE GRANULOCYTES 0.6 % (0-5); LYMPHOCYTES 10.4 % (15-50); MCH 29.4 pg (26.0-34.0); MCV 91.8 fL (80.0-100.0); MEAN PLATELET VOLUME 9.8 fL (7.4-10.4); MONOCYTES 6.4 % (2-11); NEUTROPHILS 81.7 % (40-80); PLATELET COUNT 204 10x3/uL (130-400); RBC 3.06 10x6/uL (4.00-5.40); RDW 13.4 % (11.5-14.5)
[2017-07-10 05:33] LABS: WBC 10.6 10x3/uL (4.8-10.8)
[2017-07-10 05:44] LABS: ANION GAP 18.3 mmol/L (8-16); CALCIUM 8.3 mg/dL (8.5-10.1); POTASSIUM - SERUM 4.3 mmol/L (3.5-5.1); VANCOMYCIN - RANDOM 8.2 ug/mL (10.0-20.0)
[2017-07-10 05:45] LABS: CREATININE - SERUM 1.6 mg/dL (0.6-1.3)
[2017-07-11 00:56] VITALS: BP 123/40
[2017-07-11 04:04] VITALS: BP 112/46
[2017-07-11 05:32] LABS: BASOPHILS 0.3 % (0-2); EOSINOPHILS 1.7 % (0-7); HEMATOCRIT 25.6 % (36.0-48.0); HEMOGLOBIN 8.1 g/dL (12-16); IMMATURE GRANULOCYTES 1.1 % (0-5); LYMPHOCYTES 18.1 % (15-50); MCH 28.5 pg (26.0-34.0); MCHC 31.6 g/dL (31.0-37.0); MCV 90.1 fL (80.0-100.0); MEAN PLATELET VOLUME 9.6 fL (7.4-10.4); MONOCYTES 9.1 % (2-11); NEUTROPHILS 69.7 % (40-80); PLATELET COUNT 204 10x3/uL (130-400); RBC 2.84 10x6/uL (4.00-5.40); RDW 13.1 % (11.5-14.5)
[2017-07-11 05:44] LABS: WBC 6.5 10x3/uL (4.8-10.8)
[2017-07-11 05:51] LABS: CALCIUM 8.1 mg/dL (8.5-10.1); CARBON DIOXIDE 24.7 mmol/L (21.0-32.0); CREATININE - SERUM 1.4 mg/dL (0.6-1.3); POTASSIUM - SERUM 3.7 mmol/L (3.5-5.1); VANCOMYCIN - TROUGH 11.8 ug/mL (10.0-20.0)
[2017-07-11 08:37] VITALS: BP 130/54
[2017-07-11 12:43] VITALS: BP 130/49
[2017-07-11 16:34] VITALS: BP 130/60
[2017-07-11 20:08] VITALS: BP 139/46
[2017-07-12 04:36] VITALS: BP 125/68
[2017-07-12] MEDS ORDERED: FERROUS SULFAT325 MG PO (09:38)
[2017-07-12] MEDS ORDERED: CRESTOR10 MG PO (09:39)
[2017-07-12] MEDS ORDERED: MAG-OX 400 MG400 MG PO (09:40)
[2017-07-14 17:54] LABS: EHRLICHIA CHAFF IGG Negative (Neg:<1:64); EHRLICHIA CHAFF IGM Negative (Neg:<1:20); HGE IGG TITER Negative (Neg:<1:64); HGE IGM TITER Negative (Neg:<1:20)
[2017-07-15 11:17] LABS: F. TULARENSIS - IGG Negative (()); F. TULARENSIS - IGM Negative (())
== END 2017-07-12 09:30 | disposition home or self-care (01) | DRG 872 ==
LOC: D.MS 12:33 → OBSVTIME 12:35 → D.ICU 15:51 → D.MS 15:51 → D.ICU 16:32 → D.MS 07-10 11:00
PROVIDERS: Family Medicine
DX: A41.9 Sepsis, unspecified organism (principal); N17.9 Acute kidney failure, unspecified; R50.9 Fever, unspecified; R19.7 Diarrhea, unspecified; I25.10 Atherosclerotic heart disease of native coronary artery without angina pectoris; I10 Essential (primary) hypertension; E78.5 Hyperlipidemia, unspecified

== ENCOUNTER → 2018-06-16 07:47 | Outpatient (CLI) | payer MEDICARE, OTHER ==
[2017-07-10 10:21] VITALS: BMI 30.1
[~2018-06-16 07:47] MED LIST changes: +CRESTOR10 MG PO; +FERROUS SULFAT325 MG PO; +MAG-OX 400 MG400 MG PO
== END | disposition home or self-care (01) ==
LOC: D.US 07:47
PROVIDERS: ATTEND Internal Medicine Cardiovascular Disease
DX: I65.23 Occlusion and stenosis of bilateral carotid arteries (principal)

== ENCOUNTER 2018-11-02 12:35 | Inpatient (IN) | payer MEDICARE, OTHER ==
[2018-11-02] VITALS: BP 112/56; BP 117/79
[~2018-11-02] VITALS: Ht 165.1 cm; Wt 79.4 kg
[2018-11-02] MEDS ORDERED: BENICAR20 MG PO (12:50)
--- NOTE | 2018-11-02 12:55 | NUR ---
RECEIVED PT TO ROOM 2106 VIA WHEELCHAIR, PT WAS ABLE TO AMBULATE FROM WHEELCHAIR TO BED WITH STEADY GAIT. ORIENTED PT TO ROOM AND CALL LIGHT. PT A/O X4, RESP EVEN AND NONLABORED ON RA. WILL ASSESS PT AND START PLAN OF CARE.
[2018-11-02 13:43] VITALS: BP 126/46; BMI 29.1
--- NOTE | 2018-11-02 14:46 | NUR ---
CALLED PHARMACY AND SPOKE WITH ODILIA, INFORMED HIM THAT ORDERES FOR NS HAS NOT BEEN PUT IN YET.
[2018-11-02 16:04] VITALS: BP 127/43
--- NOTE | 2018-11-02 17:13 | NUR ---
NOTIFIED GAMEMASTER JANE, ABOUT NEEDED A HEART MONITOR. WAS NOTIFIED BY HER THAT SHE ONLY HAS THREE AVAILABLE AND SHE IS SAVING THOSE FOR CHEST PAIN PT, ALSO THERE ARE THREE PT AHEAD OF THIS ONE THAT ALSO NEED MONITORS.
[2018-11-02 18:04] LABS: APPEARANCE CLEAR (CLEAR); BILIRUBIN NEGATIVE (NEGATIVE); COLOR YELLOW (YELLOW); GLUCOSE NEGATIVE (NEGATIVE); KETONE NEGATIVE (NEGATIVE); NITRITE NEGATIVE (NEGATIVE); PROTEIN NEGATIVE (NEGATIVE); UROBILINOGEN NORMAL (NORMAL)
--- NOTE | 2018-11-02 19:15 | NUR ---
BED IS LOW AND LOCKED SRX2 ANSD CALL LIGHT WITH PT ASSISTED WITH COMFORT AND SUPPLIED IMPLIMENTS FOR ORAL CARE. LCTA SKIN WARM AND DRY NS AT 125 TO RT AC TOLERATING WELL NO OTHER NEEDS at this time
--- NOTE | 2018-11-02 22:28 | NUR ---
NOTE TELEMETRY STILL NOT AVAILABLE
--- NOTE | 2018-11-03 03:37 | NUR ---
I have reviewed this patient and I concur with the Shift Assessment completed by the Licensed Practical Nurse today this shift.
[2018-11-03 04:00] VITALS: BP 105/46
[2018-11-03 07:14] LABS: BASOPHILS 0.2 % (0-2); EOSINOPHILS 1.4 % (0-7); HEMATOCRIT 26.1 % (36.0-48.0); HEMOGLOBIN 8.6 g/dL (12-16); IMMATURE GRANULOCYTES 1.4 % (0-5); LYMPHOCYTES 32.1 % (15-50); MCH 27.9 pg (26.0-34.0); MCV 84.7 fL (80.0-100.0); MEAN PLATELET VOLUME 9.7 fL (7.4-10.4); MONOCYTES 7.5 % (2-11); NEUTROPHILS 57.4 % (40-80); PLATELET COUNT 226 10x3/uL (130-400); RBC 3.08 10x6/uL (4.00-5.40); RDW 14.5 % (11.5-14.5); WBC 5.7 10x3/uL (4.8-10.8)
--- NOTE | 2018-11-03 07:15 | HP ---
PATIENT: MELISSA CARROLL MEDICAL RECORD: [id number] ACCOUNT: [id number] LOCATION:[address] : 40 ADMISSION DATE: 11/02/18 PCP: CONCHA SWEENEY MD HISTORY AND PHYSICAL EXAMINATION REASON FOR ADMISSION: Nausea with intractable diarrhea and fatigue. HISTORY OF PRESENT ILLNESS: The patient is a 78-year-old female with history of CAD and pernicious anemia. She states that, 5 days ago, she developed onset of some nausea and loose stool. She developed what she thought was some chills and then fever 2 days later. She has had 8-12 stools per day through the weekend and now feels very fatigued. She has had nausea without active vomiting, taking Zofran. She denies severe abdominal pain, melena, or bright red blood per rectum. She denies any recent foreign travel. She is not drinking well water. Her spouse has been unaffected and has not been ill. She presented to the office this morning, was obviously dehydrated, mildly tachycardic, and BUN was over 45 and creatinine was over 2. For that reason, she is now being admitted. She was hospitalized on July 09 of last year with a similar presentation, but had a high white count at that time. She met sepsis indicators and was treated with IV antibiotics and fluids. Her cultures returned negative in blood, urine, and stool. She improved and was hydrated. In the interim, Dr. Owens, her gastrologist, performed a colonoscopy showing diverticulosis, otherwise unremarkable. She has been on no antibiotics recently. PAST MEDICAL HISTORY: Gastroenteritis with dehydration in June of 2017; coronary artery disease with LAD and RCA PTCAs in January of 2017; right middle lobe pneumonia in May of 2009; history of erosive gastritis; duodenitis; diverticulosis; hyperlipidemia; hypertension; history of right carotid stenosis, on Plavix and aspirin; restless leg syndrome; osteoarthritis of lumbar spine; history of community-acquired pneumonia, left lower lobe, May of 2007; GAGANDEEP-induced cough; shingles at left T7 distribution with neuralgia in 2004; history of onychomycosis; depression; UTI with hospitalization in 1979; vitamin D deficiency; trigeminal neuralgia, controlled; and pernicious and iron deficiency anemia, followed by Dr. Bryson. PAST SURGICAL HISTORY: Right carotid stent placed and PTCA times 2. SOCIAL HISTORY: Lifelong smoker. She does not drink alcohol. She is . FAMILY HISTORY: Father of [place] at 61. Mother's history is unknown. ALLERGIES: FLU VACCINE, LIPITOR, ZITHROMAX CAUSING DIARRHEA, ALLOPURINOL, AND INDOMETHACIN. HOME MEDICATIONS: Xanax 0.25 one half to one t.i.d. p.r.n. anxiety, Protonix 40 mg daily, vitamin D 10,000 units capsule p.o. weekly, clopidogrel 75 mg p.o. daily, carbamazepine ER 100 mg capsule p.o. q. 12 hours, Zofran 4 mg q. 6 hours p.r.n. nausea, B12 1000 mcg injection monthly, Benicar HCT 40/12.5 one p.o. q.a.m., Biotin 5 mg daily, Crestor 40 mg at bedtime, and aspirin 81 mg daily. REVIEW OF SYSTEMS: GENERAL: She has felt fatigued in the last 3-4 days, poor appetite with chronic nausea, and low-grade fever. HEENT: No recent visual change, sinus congestion, or sore throat. HISTORY AND PHYSICAL [id number] MELISSA CARROLL RESPIRATORY: No SOB or cough. CARDIAC: No chest pain or palpitations. GASTROINTESTINAL: Nausea without vomiting. She has had 8 stools this morning. She states they were watery. She has had no blood per rectum. Diarrhea has been continuous for the last 5 days. Denies severe abdominal cramping. GENITOURINARY: No incontinence or dysuria. GYNECOLOGIC: No vaginal bleeding. MUSCULOSKELETAL: Chronic lumbago without sciatica. PSYCHIATRIC: Denies depressed mood. NEUROLOGIC: No history of stroke, TIA, or vascular headaches. INTEGUMENT: No rash or itching. PHYSICAL EXAMINATION: VITAL SIGNS: Her temperature is 99.6 degrees Fahrenheit orally, pulse is 100 and regular, respirations are 18, and blood pressure is 122/70. GENERAL: The patient appears ill. HEENT: Normocephalic. Eyes are clear. Oropharynx shows dry mucous membranes. NECK: Supple. HEART: Tachycardic without murmur. CHEST: Clear. ABDOMEN: Soft and minimally tender in left lower quadrant without rebound. No CVA tenderness noted. Bowel sounds are hyperactive. She is wearing a diaper. EXTREMITIES: No gross edema. NEUROLOGIC: Oriented to person, place, and time. Cranial nerves are grossly intact. LABORATORY DATA: White count 7.6 thousand with normal diff, H&H is 9.9 and 30.2 respectively. BUN and creatinine are 45 and 2.27 with glucose of 131. BUN and creatinine were 26 and 1.5 two months ago. DIAGNOSTIC DATA: X-rays are pending. ASSESSMENT: 1. Gastroenteritis with acute renal insufficiency and dehydration. 2. CAD. 3. Carotid stenosis. 4. Hypertension. 5. Hyperlipidemia. 6. History of gastritis and diverticulosis with recent colonoscopy in June 2018. 7. B12 and iron deficiency anemia. PLAN: Hospitalized with saline fluid challenge. Monitor blood pressure closely. Culture blood, urine, and stool. Further workup pending clinical course. TRANSINT:[id number] Voice Confirmation ID: [id number] DOCUMENT ID: [id number] HISTORY AND PHYSICAL [id number] MELISSA CARROLL TIMOTHY MD at 0715 CC: [id number] DICTATION DATE: 11/02/18 1348 CARDIAC MONITOR: 11/02/18 1429 ADM IN [id number] [place] [address]
--- NOTE | 2018-11-03 07:30 | NUR ---
A/A/OX4. DENIES ANY PAIN OR DISCOMFORT AT PRESENT TIME AND NO REQUESTS VOICED. IV PATENT TO RIGHT AC WITH REDNESS OR EDEMA AT SITE. SIDERAILS UP X 2, CALL LIGHT IN REACH AND BED IN LOW LOCKED POSITION. ASSESSMENT COMPLETED AND WILL CONTINUE POC. PT DECLINES OFFER OF SCDS AT PRESENT TIME SHE GETS UP TO BATHROOM AND WOULD HAVE TO UNDO THEM. GETTING EXERCISE OF LOWER EXT.
[2018-11-03 07:57] VITALS: BP 141/48
[2018-11-03 08:26] LABS: ANION GAP 12.3 mmol/L (8-16); CALCIUM 8.3 mg/dL (8.5-10.1); CARBON DIOXIDE 27.4 mmol/L (21.0-32.0); CREATININE - SERUM 1.7 mg/dL (0.6-1.3); POTASSIUM - SERUM 3.7 mmol/L (3.5-5.1)
[2018-11-03 12:50] VITALS: BP 146/47
[2018-11-03 13:38] VITALS: Ht 165.1 cm; Wt 79.4 kg
[2018-11-03 16:52] VITALS: BP 139/49
--- NOTE | 2018-11-03 17:29 | NUR ---
PT RESTING QUIETLY IN BED. RESP WITH EASE. NO APPARENT DISTRESS. SUPPER TRAY AT BEDSIDE. PT NOT EATING- SHE SAYS SHE IS NOT HUNGRY. SHE DOES NOT WANT ANY THING. WILL CONTINUE WITH POC.
[2018-11-03 20:00] VITALS: BP 149/55
--- NOTE | 2018-11-03 21:28 | NUR ---
PT IN BED LOWEST POSITION, RESPIRATIONS EVEN AND UNLABORED, HS MEDS GIVEN, C/O ROOM WARM AIR ADJUSTED, FLUIDS AND CALL LIGHT WITHIN REACH, NO OTHER NEEDS VERBALIZED OR NOTED
[2018-11-04 04:00] VITALS: BP 148/63
[2018-11-04 05:33] LABS: BASOPHILS 0.2 % (0-2); EOSINOPHILS 1.5 % (0-7); HEMATOCRIT 27.6 % (36.0-48.0); HEMOGLOBIN 8.9 g/dL (12-16); IMMATURE GRANULOCYTES 1.3 % (0-5); LYMPHOCYTES 22.6 % (15-50); MCH 27.2 pg (26.0-34.0); MCHC 32.2 g/dL (31.0-37.0); MCV 84.4 fL (80.0-100.0); MEAN PLATELET VOLUME 9.5 fL (7.4-10.4); MONOCYTES 6.1 % (2-11); NEUTROPHILS 68.3 % (40-80); PLATELET COUNT 251 10x3/uL (130-400); RBC 3.27 10x6/uL (4.00-5.40); RDW 14.2 % (11.5-14.5)
[2018-11-04 05:37] LABS: WBC 8.2 10x3/uL (4.8-10.8)
[2018-11-04 06:13] LABS: ANION GAP 15.2 mmol/L (8-16); CALCIUM 8.8 mg/dL (8.5-10.1); CARBON DIOXIDE 24.9 mmol/L (21.0-32.0); CREATININE - SERUM 1.5 mg/dL (0.6-1.3); POTASSIUM - SERUM 4.1 mmol/L (3.5-5.1)
--- NOTE | 2018-11-04 07:32 | NUR ---
INITIAL ROUNDING, BEDSIDE SHIFT REPORT COMPLETE. WHITE BOARD UPDATED. PATIENT IS AWAKE AND WANTING TO GO HOME TODAY. SHE DENIES PAIN, RESTING ON HER LEFT SIDE, TV OFF, CALL LIGHT IN REACH.
[2018-11-04 08:30] VITALS: BP 131/62
--- NOTE | 2018-11-04 09:39 | NUR ---
THE PATIENT IS JUST BACK IN HER ROOM AFTER A LONG WALK WITH HER SPOUSE IN THE [place]
[2018-11-04 12:59] VITALS: BP 175/70
[2018-11-04] MEDS ORDERED: LOMOTIL 2.5-0.1 EAC1 PO (17:03)
--- NOTE | 2018-11-05 10:07 | MORECARE ---
CASE MANAGEMENT DISCHARGE SUMMARY PATIENT: MELISSA CARROLL UNIT: [id number] ADM DATE: 11/02/18 AGE: 78 : 40 SEX: F ROOM/BED: D.2105 AUTHOR: ARELY LOUISE PHYSICIAN: REFERRING PHYSICIAN: CONCHA SWEENEY MD DATE OF SERVICE: 11/05/18 Discharge Plan Patient Name: MELISSA CARROLL Facility[facility]:[place] : 1940 Planned Disposition: Home Anticipated Discharge Date: 11/04/18 Discharge Date: 11/04/2018 Expected LOS: 2 Initial Reviewer: [email or web address] Initial Review Date: 11/05/2018 Generated: 11/05/18 7:45 am Patient Name: MELISSA CARROLL Page [phone] at 1007 All edits/amendments must be made on the electronic document DICTATION DATE: 11/05/1845 INSTRUMENT ASSEMBLY SUPERVISOR: MARGA 11/05/1845 RPT#: [id number] DC DATE:11/04/18 STATUS: DIS IN [facility] [address] [place] [address] END OF REPORT
== END 2018-11-04 17:45 | disposition home or self-care (01) | DRG 392 ==
LOC: D.M2 12:35
PROVIDERS: ADMIT Family Medicine; ATTEND Family Medicine
DX: K52.9 Noninfective gastroenteritis and colitis, unspecified (principal); N17.9 Acute kidney failure, unspecified; E86.0 Dehydration; I25.10 Atherosclerotic heart disease of native coronary artery without angina pectoris; I65.29 Occlusion and stenosis of unspecified carotid artery; I10 Essential (primary) hypertension; E78.5 Hyperlipidemia, unspecified; K57.90 Diverticulosis of intestine, part unspecified, without perforation or abscess without bleeding; D50.9 Iron deficiency anemia, unspecified; D51.9 Vitamin B12 deficiency anemia, unspecified; I95.9 Hypotension, unspecified

== ENCOUNTER 2019-05-15 15:53 | Emergency (ER) | payer MEDICARE, OTHER ==
[~2019-05-15] VITALS: Ht 165.1 cm; Wt 78.2 kg
[~2019-05-15 15:53] MED LIST changes: +BENICAR20 MG PO; +LOMOTIL 2.5-0.1 EAC1 PO
[2019-05-15 16:00] VITALS: Ht 165.1 cm; Wt 78.2 kg
[2019-05-15 16:38] LABS: BASOPHILS 0.2 % (0-2); EOSINOPHILS 1.8 % (0-7); HEMATOCRIT 35.2 % (36.0-48.0); HEMOGLOBIN 10.9 g/dL (12-16); IMMATURE GRANULOCYTES 0.2 % (0-5); LYMPHOCYTES 22.1 % (15-50); MCH 27.3 pg (26.0-34.0); MCV 88.2 fL (80.0-100.0); MEAN PLATELET VOLUME 9.5 fL (7.4-10.4); MONOCYTES 9.4 % (2-11); NEUTROPHILS 66.3 % (40-80); PLATELET COUNT 233 10x3/uL (130-400); RBC 3.99 10x6/uL (4.00-5.40); RDW 14.6 % (11.5-14.5)
[2019-05-15 16:49] LABS: CALC OSMOLALITY 281 mosm/kg (275-300); CARBON DIOXIDE 27.9 mmol/L (21.0-32.0); CHLORIDE - SERUM 101 mmol/L (98-107); CREATININE - SERUM 1.6 mg/dL (0.6-1.3); GLUCOSE 99 mg/dL (74-106); POTASSIUM - SERUM 3.5 mmol/L (3.5-5.1); SODIUM 140 mmol/L (136-145); UREA NITROGEN 21 mg/dL (7-18); eGFR NON AFRICAN AMERICAN 33 mL/min (90-120)
[2019-05-15 16:58] LABS: ALBUMIN 3.3 g/dL (3.4-5.0); ALKALINE PHOSPHATASE 71 U/L (30-120); ALT (SGPT) 14 U/L (10-68); AMYLASE - SERUM 74 U/L (25-115); BILIRUBIN - TOTAL 0.49 mg/dL (0.2-1.3); LIPASE 90 U/L (73-393); PROTEIN - SERUM 7.5 g/dL (6.4-8.2); TROPONIN-I < 0.017 ng/mL (0.000-0.060)
[2019-05-15 17:06] LABS: APPEARANCE HAZY (CLEAR); BILIRUBIN NEGATIVE (NEGATIVE); COLOR YELLOW (YELLOW); GLUCOSE NEGATIVE (NEGATIVE); KETONE NEGATIVE (NEGATIVE); NITRITE NEGATIVE (NEGATIVE); PROTEIN 1+ mg/dL (NEGATIVE); UROBILINOGEN NORMAL (NORMAL)
[2019-05-15 17:07] LABS: BACTERIA MANY /hpf (NEGATIVE); WHITE CELLS - URINE OCC /hpf (NEGATIVE)
[2019-05-15 17:08] LABS: AMORPHOUS SEDIMENT >1+ /lpf (NONE SEEN)
[2019-05-15] MEDS ORDERED: LOMOTIL 2.5-0.1 EAC1 PO (17:36)
[2019-05-15] MEDS ORDERED: ZOFRAN ODT4 MG/UDTAB PO (17:36)
[2019-05-15 19:12] VITALS: BP 145/45
== END 2019-05-15 19:12 | disposition home or self-care (01) ==
LOC: D.ER 15:53
PROVIDERS: Family Medicine
DX: A08.4 Viral intestinal infection, unspecified (principal); D64.9 Anemia, unspecified; I10 Essential (primary) hypertension; K21.9 Gastro-esophageal reflux disease without esophagitis

== ENCOUNTER → 2019-08-09 12:43 | Outpatient (CLI) | payer MEDICARE, OTHER ==
[2019-05-15 16:00] VITALS: BMI 28.6
[~2019-08-09 12:43] MED LIST changes: +ZOFRAN ODT4 MG/UDTAB PO
== END | disposition home or self-care (01) ==
LOC: D.US 12:43
PROVIDERS: ATTEND Internal Medicine Cardiovascular Disease
DX: I65.23 Occlusion and stenosis of bilateral carotid arteries (principal)

== ENCOUNTER → 2020-08-22 14:33 | Outpatient (CLI) | payer MEDICARE, OTHER ==
[2019-05-15 16:00] VITALS: BMI 28.6
== END | disposition home or self-care (01) ==
LOC: D.US 14:30
PROVIDERS: ATTEND Internal Medicine Interventional Cardiology
DX: I65.23 Occlusion and stenosis of bilateral carotid arteries (principal)